=== PATIENT | male | born 1965 | race Caucasian/White ===

== ENCOUNTER 2016-07-28 19:47 | Emergency (ER) | payer MEDICAID ==
[2016-07-28 22:44] VITALS: BP 136/75
== END 2016-07-28 22:44 | disposition home or self-care (01) ==
LOC: ED 19:47
DX: S82.492A Other fracture of shaft of left fibula, initial encounter for closed fracture (principal); E11.9 Type 2 diabetes mellitus without complications; I10 Essential (primary) hypertension; E78.00 Pure hypercholesterolemia, unspecified; Z88.1 Allergy status to other antibiotic agents; X58.XXXA Exposure to other specified factors, initial encounter; Y93.89 Activity, other specified; Y92.89 Other specified places as the place of occurrence of the external cause; Y99.8 Other external cause status; G62.9 Polyneuropathy, unspecified
CPT/HCPCS: 90715

== ENCOUNTER 2016-11-06 19:51 | Emergency (ER) | payer MEDICAID ==
[~2016-11-06] VITALS: Ht 188 cm; Wt 102.0 kg
[2016-11-06 23:07] VITALS: BP 130/65
== END 2016-11-06 23:07 | disposition home or self-care (01) ==
LOC: ED 19:51
DX: S92.901A Unspecified fracture of right foot, initial encounter for closed fracture (principal); S93.401A Sprain of unspecified ligament of right ankle, initial encounter; E11.42 Type 2 diabetes mellitus with diabetic polyneuropathy; E78.5 Hyperlipidemia, unspecified; W18.30XA Fall on same level, unspecified, initial encounter; Y93.89 Activity, other specified; Y99.8 Other external cause status; Y92.000 Kitchen of unspecified non-institutional (private) residence as the place of occurrence of the external cause

== ENCOUNTER 2017-01-10 21:18 | Inpatient (IN) | payer MEDICAID ==
[~2017-01-10] VITALS: Ht 188 cm; Wt 93.0 kg
--- NOTE | 2017-01-10 21:27 | NUR ---
PT SENT TO LOBBY TO WAIT FOR AVAILABLE BED. ALERT AND ORIENTED AND NO DISTRESS NOTED
--- NOTE | 2017-01-10 22:28 | NUR ---
PT PRESENTS TO THE ED WITH A C/O L BIG TOE PAIN. PER THE PT HE STARTED TO NOTICE THE PAIN AND SWELLING 1 WEEK AGO AND IT HAS PROGESSIVELY GOTTEN WORSE. AT THIS TIME THERE IS A SMALL BLISTERLIKE WOUND TO THE PLANTAR PORTION AND REDNESS AND SWELLING AROUNF THE TOE. THE SWELLING DOES CONTINUE UP THE FOOT TO THE ANKLE. PT REPORTS PAIN IS 3/10 AND IS ABLE TO AMBULATE ON THE FOOT WITH INCREASED PAIN.
[2017-01-10] MEDS ORDERED: TRULICITY0.75 MG/0. SC (23:24)
[2017-01-10] MEDS ORDERED: ASPIR 8181 MG PO (23:25)
[2017-01-10 23:42] LABS: BASOPHIL % 0.4 % (0-2); PLATELET COUNT 327 x10^3mcL (130-400); RED CELL DISTRIBUTION WIDTH 12.6 % (11.5-14.5)
[2017-01-11] VITALS (7 sets, daily range): BP systolic 140–169; BP diastolic 70–83
--- NOTE | 2017-01-11 00:03 | NUR ---
REPORT CALLED TO OREN GALINDO ON [facility]
[2017-01-11 00:15] LABS: BILIRUBIN TOTAL 0.4 mg/dL (0.20-1.00); CALCIUM 8.9 mg/dL (8.5-10.1); CARBON DIOXIDE 23.6 mmol/L (21-32); CREATININE SERUM 1.9 mg/dL (0.7-1.3); POTASSIUM SERUM 4.7 mmol/L (3.5-5.1)
[2017-01-11 00:18] LABS: ALBUMIN 2.7 g/dL (3.4-5.0); TOTAL PROTEIN, SERUM 8.4 g/dL (6.4-8.2)
[2017-01-11 00:19] LABS: GLUCOSE SERUM 570.27 mg/dL (74-106)
[2017-01-11 01:09] LABS: FREE T4 1.08 ng/dL (0.76-1.46); FREE THYROXINE INDEX 2.8 ug/dL (1.4-4.5); T4(THYROXINE) 7.1 ug/dL (4.7-13.3)
--- NOTE | 2017-01-11 01:14 | NUR ---
RECEIVED PT FROM ED VIA KADEN. ORIENTED PT TO ROOM AND SURROUNDINGS. IV NOTED TO LFA PATENT AND INTACT. TELE 7 PLACED ON PT READING NSR. INSTRUCTED PT ON THE USE OF CALL LIGHT FOR ASSISTANCE. ENDORSED PT TO PRIMARY NURSE TIMI
[2017-01-11 01:26] LABS: MAGNESIUM 2.1 mg/dL (1.8-2.4); PHOSPHOROUS 4.4 mg/dL (2.5-4.9)
--- NOTE | 2017-01-11 01:30 | NUR ---
NOTED PT'S BS 515, 513. DENIES AND HEADACHE OR DISCOMFORT. NO S/S OF DISTRESS NOTED. DR. MARINA NOTIFIED AND AWARE. REGULAR INSULIN 21 UNITS GIVEN PER SLIDING SCALE. DR. MARINA IN TO SEE PT AT THIS TIME. CALL LIGHT WITHIN REACH. WILL CONTINUE TO MONITOR.
--- NOTE | 2017-01-11 02:19 | NUR ---
RECHECKED PT'S BS 482, 469. DENIES ANY HEADACHE OR DISCOMFORT. CURRENTLY AWAKE AND ALERT WATCHING TV. NO S/S OF DISTRESS NOTED. BREATHING EQUAL AND UNLABORED. IV NS INFUSING WELL TO LEFT FA. CALL LIGHT WITHIN REACH. WILL CONTINUE TO MONITOR. DR. MARINA NOTIFIED AND AWARE.
[2017-01-11 03:26] LABS: T3 TOTAL 0.77 ng/mL
--- NOTE | 2017-01-11 06:22 | NUR ---
PT SLEPT FOR FEW HOURS. EASILY AROUSED WHEN NAME CALLED. NO S/S OF RESPIRATORY DISTRESS NOTED ON ROOM AIR. IV TO LEFT FA PATENT AND NS INFUSING WELL. BS 222, COVERED WITH 6 UNITS REGULAR INSULIN. DENIES ANY PAIN AT THIS TIME. NO S/S OF DISTRESS NOTED. CALL LIGHT WITHIN REACH. WILL CONTINUE TO MONITOR. DR. MARINA NOTIFIED AND AWARE OF BS AND INSULING COVERAGE.
--- NOTE | 2017-01-11 07:40 | NUR ---
RECEIVED PT IN BED ALERT AND ORIENTED X4. NSR ON TELE MONITOR. PT REPORTS VERY POOR VISION. DENIES ANY PAIN AT THIS TIME. SWELLING AND A BLISTER NOTED TO L GREAT TOE. PT REPORTS NUMBNESS AND TINGLING TO GARETT FEET. AMBULATORY. INSTRUCTED TO USE CALL LIGHT WHEN IN NEED OF ANY ASSISTANCE.
--- NOTE | 2017-01-11 10:15 | NUR ---
DR NAVARRETE AND DR LAW AT BEDSIDE, PERFORMED I&D OF L GREAT TOE. PT TOLERATED WELL. DENIES PAIN. GAUZE AND EFREN WRAP DRESSING NOTED TO L GREAT TOE AND FOOT NOW.
[2017-01-11 16:52] LABS: UA SPECIFIC GRAVITY 1.025 (1.005-1.035); microscopic required? YES; urine erythrocyte 1+ (NEGATIVE)
[2017-01-11 17:02] LABS: AMPHETAMINE QUAL UR NONE DETECTED (NEG <=1000)
--- NOTE | 2017-01-11 18:10 | NUR ---
PT LYING IN BED, DENIES PAIN OR DISCOMFORT. DRESSING TO L FOOT/TOE CDI. INSTRUCTED TO USE POST-OP SHOE WHEN AMBULATING, HEEL TOUCH WEIGHT BEARING TOLERATED, VERBALIZED UNDERSTANDING.
--- NOTE | 2017-01-11 19:46 | NUR ---
RECEIVED PT FROM PREVIOUS SHIFT. AAOX4. TELE #7. DENIES CP/PRESSURE AT THIS TIME. PULSES PALPABLE BILAT. NO EDEMA NOTED. LUNG SOUNDS CTA BILAT. DENIES SOB ON RA. BOWEL SOUNDS ACTIVE X4. PT AMBULATORY. NO WEAKNESS. I&D OF LEFT GREAT TOE THIS MORNING. DRESSING AND EFREN BANDAGE CDI. IV TO LFA PATENT AND INTACT. INFUSING WELL. BED IN LOWEST POSITION. CALL LIGHT WITHIN REACH. WILL CONTINUE TO MONITOR. DAUGHTER AT BEDSIDE.
--- NOTE | 2017-01-12 01:01 | NUR ---
PT RESTING IN BED. RESPIRATIONS EVEN AND UNLABORED. NO SIGNS OF RESP DISTRESS. IV PATENT AND INTACT. INFUSING WELL. BED IN LOWEST POSITION. CALL LIGHT WITHIN REACH. WILL CONTINUE TO MONITOR
[2017-01-12 05:53] VITALS: BP 160/76
--- NOTE | 2017-01-12 06:12 | NUR ---
PT AWAKE AND ALERT IN BED. NO RESP DISTRESS NOTED. RESPIRATIONS EVEN AND UNLABORED. DENIES ANY PAIN AT THIS TIME. IV TO LFA PATENT AND INTACT. INFUSING WELL. BED IN LOWEST POSITION. CALL LIGHT WITHIN REACH. WILL ENDORSE CARE TO ONCOMING SHIFT
[2017-01-12 07:03] LABS: CALCIUM 8.5 mg/dL (8.5-10.1); CARBON DIOXIDE 24.8 mmol/L (21-32); CREATININE SERUM 1.5 mg/dL (0.7-1.3)
--- NOTE | 2017-01-12 07:15 | NUR ---
PT IN BED. NO DISTRESS REPORTED. AWAKE, COOPERATIVE OF CARE. IV INFUSING WELL TO LFA #20 NS AT 100ML/HR. POST OP SHOE AT BEDSIDE. BANDAGE WRAP TO LEFT FOOT GREAT TOE CDI. DENIES PAIN AT MOMENT. BED IN LOWEST POSITION, CALL LIGHT WITHIN REACH.
[2017-01-12 07:21] LABS: BASOPHIL % 0.6 % (0-2); PLATELET COUNT 295 x10^3mcL (130-400); RED CELL DISTRIBUTION WIDTH 12.9 % (11.5-14.5)
[2017-01-12 09:03] VITALS: BP 160/74
--- NOTE | 2017-01-12 13:00 | NUR ---
PT IN BED. NO DISTRESS NOTED. REPORTS COMFORT AT MOMENT. CALL LIGHT WITHIN REACH.
[2017-01-12 13:12] VITALS: BP 140/80
--- NOTE | 2017-01-12 17:05 | NUR ---
PASSED AFTERNOON MEDS. PT TOLERATED WELL. PT DENIES PAIN TO LEFT LOWER EXTREMITY GREAT TOE. BANDAGE IN PLACE WITH EFREN WRAP. CONDITION INTACT. PULSES +2 TO ALL EXTREMITY. CALL LIGHT WITHIN REACH.
--- NOTE | 2017-01-12 19:55 | NUR ---
RECEIVED PT FROM PREVIOUS SHIFT. AAOX4. TELE #7. DENIES CP/PRESSURE AT THIS TIME. PULSES STRONG BILAT. SLIGHT EDEMA TO LEFT FOOT. LUNG SOUNDS CTA BILAT. DENIES SOB ON RA. BOWEL SOUNDS ACTIVE X4. PT AMBULATORY. NO WEAKNESS NOTED. DRESSING AND EFREN BANDAGE TO LEFT FOOT AND GREAT TOE CDI. IV TO LFA PATENT AND INTACT. INFUSING WELL. BED IN LOWEST POSITION. CALL LIGHT WITHIN REACH. WILL CONTINUE TO MONITOR
[2017-01-12 21:10] VITALS: BP 160/72
--- NOTE | 2017-01-12 23:01 | NUR ---
PT RESTING IN BED WATCHING TV. NO COMPLAINTS OF SOB OR PAIN AT THIS TIME. IV TO LFA PATENT AND INTACT. INFUSING WELL. BED IN LOWEST POSITION. CALL LIGHT WITHIN REACH. WILL CONTINUE TO MONITOR
[2017-01-13 05:38] VITALS: BP 165/72
--- NOTE | 2017-01-13 06:27 | NUR ---
PT AWAKE IN BED WATCHING TV. INSULIN ADMININSTERED THIS MORNING 3 UNITS. BLOOD SUGAR 186. NO COMPLAINTS OF FOOT PAIN AT THIS TIME. RESPIRATIONS EVEN AND UNLABORED. NO SOB ON RA NOTED. IV TO LFA PATENT AND INTACT. INFUSING WELL. BED IN LOWEST POSITION. CALL LIGHT WITHIN REACH. WILL ENDORSE CARE TO ONCOMING SHIFT
[2017-01-13 06:58] LABS: BASOPHIL % 0.6 % (0-2); PLATELET COUNT 301 x10^3mcL (130-400); RED CELL DISTRIBUTION WIDTH 12.7 % (11.5-14.5)
--- NOTE | 2017-01-13 07:30 | NUR ---
REASSESSMENT DONE. NO DISTRESS NOTED. ABLE TO VERBALIZE NEEDS. DENIES PAIN TO LLE AT MOMENT. IV INFUSING WELL TO LFA #20 NS 100ML/HR. CALL LIGHT WITHIN REACH. WILL CONTINUE TO MONITOR.
[2017-01-13 07:37] LABS: CALCIUM 8.4 mg/dL (8.5-10.1); CARBON DIOXIDE 21.9 mmol/L (21-32); CREATININE SERUM 1.6 mg/dL (0.7-1.3); POTASSIUM SERUM 5.2 mmol/L (3.5-5.1)
--- NOTE | 2017-01-13 08:55 | NUR ---
DR ZARATE IN TO SEE PT. PROVIDING WOUND CARE TO LEFT FOOT GREAT TOE. PT TOLERATING PROCEDURE WELL.
[2017-01-13 09:19] VITALS: BP 140/74
[2017-01-13 13:28] VITALS: BP 159/76
--- NOTE | 2017-01-13 16:47 | NUR ---
Initial Nutrition Assessment Dx: Diabetic foot infection PMHx: DM, Neuropathy, polynodal buttox abcess s/p I&D PSHx: tonsilectomy, i&D for polinodal abcsess on buttox Labs: (01/13) Na:134L, K:5.2H, BH, BUN:25H, Cr:1.6H, Ca:8.4L,H/H:9.3/28L (01/10) Alb:2.7L, Lipase:1148H, A1c:10.2H, TH, Meds: Colace, Humulin, Lactinex, Levemir, NS IV, Theragran, Zofran Diet:CCHO PO Intake: (01/11) B:90%, L:60%, D:100% (01/12) B:100% (01/13) L:100% Ht: 74in, 6'2" Wt: 206#, 93.43kg BMI:26.4kg/m2 (overweight) IBW: 190#, 86kg %IBW: 108% UBW:206# per pt Age:51 y/o male Food Allergies:NKFA Skin: left hallux abscess s/p I &D Sal:19 Edema:+2 to left foot GI: active bowel sounds Last BM:01/12 Pt admitted with DMOOC A1C 10.2, w/ HCS, w/ Left great toe diabetic foot ulcer, BG 570 And VMN w/ Cr>1.3, Cr 1.9, per H&P. Per progress note 01/13, pt with left hallux abscess s/p incision and drainage and excisional debridement, all left foot 01/11/17. Per bed huddle this morning, pt pending wound culture sensitivity. During visit observed pt laying in bed. Pt reports to having a good appetite with no c/o N/V/C. Pt reports to always having loose stools. Pt had 1 loose stool today. Pt reports to having A1c: go from 17-10.2 since he started taking Trulicty, but has not been able to take it due both his primary doctor and aircraft design engineer opting out of Medi-Mal. Now pt is trying to find a new doctor so he can get back to taking Trulicity. Problem with: N: No V: No D: No C:No Problems with: Chewing: No Swallowing: No Current appetite: Good Recent wt change:No %wt change:N/A Vitamin/Supplement use:Vitamin A, Vitamin B6 and B12, Vitamin D, Magnesium and a Multivitamin. Special diet at home: pt tries to follow diabetic diet at home but does not always follow it. Physical activity: Walking Education: Pt requsted handout on glycemic index of foods, but RD explained we do not have one. RD provided pt with a Type 2 diabetes nutrition therapy handout. RD went over incorporating fiber into diet and portion control. Pt receptive and verbalized understanding. Estimated Nutritional Needs Based on actual body weight 93kg Energy:2325-2790kcal/d (25-30kcal/kg for maintenance) Protein:93-112 g/d (1-1.2g/kg for wound healing s/p debridement) Fluid: 2325-2790ml/d (1 ml/kcal) or per doctor Nutrition Diagnosis 1. Recommend continue with [facility] diet. 2. Recommend outpatient diabetes class. Intervention 1. Altered nutrition labs related to medication non-compliance to diabetes medication as evidenced by elevated B and A1c:10.2 Monitor/Evaluate Goal: PO intake at least 75% of estimated needs Monitor: PO intake, Labs, GI function F/U in 7 days as low risk:01/20
--- NOTE | 2017-01-13 16:49 | NUR ---
1. Recommend continue with [facility] diet. 2. Recommend outpatient diabetes class.
--- NOTE | 2017-01-13 17:00 | NUR ---
PT SITTING AT BEDSIDE CHAIR. POST OP SHOE IN PLACE. DENIES PAIN, PASSED AFTERNOON MEDICATIONS, PT TOLERATED WELL. NO DISTRESS NOTED. CALL LIGHT WITHIN REACH. DAUGHTER AT BEDSIDE.
[2017-01-13 17:31] VITALS: BP 156/79
[2017-01-13 18:19] VITALS: BP 142/82
--- NOTE | 2017-01-13 19:44 | NUR ---
SHIFT REASSESSMENT DONE.PATIENT ALERT AND ORIENTED..DAUGHTER AT BEDSIDE,SUPPORTIVE OF CARE.POOR VISION,CALL LITE IN REACH FOR ASSITANCE.BREATHING EASY.L FOOT POST OP SHOE,L GREAT TOE I AND D S/P,01/11.NS AT 100 CC/ HOUR.IV SITE TENDERNESS,REMINDED THAT I CAN START A NEW ONE,BUT SAYS HOLD OFF FOR NOW.MEDSURG PATIENT.CALL LIGHT IN REACH.
[2017-01-13 20:41] VITALS: BP 155/70
--- NOTE | 2017-01-13 21:09 | NUR ---
ALL PM MEDS GIVEN.
--- NOTE | 2017-01-14 00:45 | NUR ---
CHECKED AT INTERVALS.NO RESP DISTRESS.CALL LITE IN REACH.
--- NOTE | 2017-01-14 02:30 | NUR ---
NEW IV SITE RFA 20 GUAGE WITH GOOD BLOOD RETURN.IV RESUMED.
--- NOTE | 2017-01-14 02:32 | NUR ---
BED LINEN CHANGED BEFORE IV STARTED.MADE COMFORTABLE.PATIENT VERY PLEASANT AND COOPERATIVE OF CARE.
--- NOTE | 2017-01-14 05:58 | NUR ---
HAD AM CARE BUT STILL DO NOT WANT TO WEAR HOSPITAL GOWN.AM LAB WORKS DONE.BLOOD SUGAR 137 THIS AM.NS AT 100 CC/ HOUR.NEW BAG.IV SITE RFA REMAINS PATENT.WILL ENDORSE TO NEXT SHIFT.
[2017-01-14 06:08] LABS: BASOPHIL % 0.5 % (0-2); PLATELET COUNT 297 x10^3mcL (130-400)
[2017-01-14 06:23] VITALS: BP 154/77
[2017-01-14 06:28] LABS: CALCIUM 8.6 mg/dL (8.5-10.1); CARBON DIOXIDE 23.8 mmol/L (21-32); CREATININE SERUM 1.7 mg/dL (0.7-1.3)
--- NOTE | 2017-01-14 07:40 | NUR ---
PT RECEIVED AAOX4, CONVERSING WELL IN FULL SENTENCES. RESP EVEN AND UNLABORED ON RA. DENIES ANY SOB OR COUGH. DENIES ANY CP OR PRESSURE. IV ON RFA INTACT, 20G, INFUSING NS AT 100ML/HR. ABD ROUND/SOFT WITH ACTIVE BS IN ALL QUADS. VOIDING WELL WITH BRP. AMBULATORY WITH POST OP SHOE ON LEFT FOOT, WEIGHT BEARING TOLERATED. LEFT FOOT DRESSING CDI: GAUZE, KERLEX, AND EFREN WRAP. DENIES ANY PAIN OR DISCOMFORT AT THIS TIME. CALL LIGHT WITHIN REACH.
[2017-01-14 08:30] VITALS: BP 118/85
--- NOTE | 2017-01-14 11:03 | NUR ---
PT REPORTS NO BM THIS AM YET. DENIES ANY CP PRESSURE. ENCOURAGED TO WALK IN HALLWAYS WITH POST OP SHOE. WILL CONTINUE TO MONITOR.
[2017-01-14] MEDS ORDERED: CLINDAMYCIN HC300 MG PO (12:23)
--- NOTE | 2017-01-14 13:37 | NUR ---
PT STILL HAS NOT HAD BM, DR DIAZ MADE AWARE. PT ENCOURAGED TO AMBULATE IN HALLWAYS AND AGREEABLE. PT AMBULATED IN HALLWAYS X4 LAPS WITH POST OP SHOE TO LEFT FOOT. TOLERATED WELL WITHOUT COMPLAINTS. NOTED WITH LIMP DUE TO LEFT FOOT WOUND. PT REQUESTING CANE FOR STABILITY. DR DIAZ MADE AWARE, AT BEDSIDE TO EVALUATE.
--- NOTE | 2017-01-14 15:44 | NUR ---
PT PROVIDED WITH 4 POINT CANE FROM DONATION CLOSET. CURRENTLY AMBULATING IN HALLWAYS WITH VISITOR. POST OP SHOE TO LEFT FOOT IN PLACE. TOLERATING WELL WITHOUT COMPLAINTS.
[2017-01-14 17:26] VITALS: BP 160/72
--- NOTE | 2017-01-14 18:02 | NUR ---
PT ATTEMPTED TO HAVE BM, BUT ONLY HAD A VERY VERY SMALL ONE PER PATIENT. PT CONTINUES TO AMBULATE IN HALLWAYS FREQUENTLY. TOLERATING WELL WITHOUT COMPLAINTS.
--- NOTE | 2017-01-14 19:21 | NUR ---
REPORT GIVEN TO OREN HARDY
--- NOTE | 2017-01-14 19:25 | NUR ---
SHIFT REASSESSMENT DONE.PATIENT ALERT AND ORIENTED,SITTING UP AT BEDSIDE WITH .PLEASANT.A/O X 4.VISION DEFICIT,ASSIST PRN WITH ADLS.AMBULATORY,CANE PROVIDED.NS S ORDERED.IV SITE PATENT.MEDSURG PATIENT.NO BM YET TODAY,K+ LEVEL IS UP.L GREAT TOE DRESSING INTACT.WITH EDEMA NOTED.DENIES PAIN.CALL LIGHT IN REACH.
--- NOTE | 2017-01-14 20:53 | NUR ---
ALL PM MEDS GIVEN,SWALLOWS WELL.
[2017-01-14 21:22] VITALS: BP 142/57
--- NOTE | 2017-01-14 22:51 | NUR ---
PATIENT CLAIMED HE HAD BOWEL MOVEMENT X3.LAB WORKS DONE.DIFLUCAN IVPB.
[2017-01-14 23:10] LABS: CALCIUM 8.2 mg/dL (8.5-10.1); CARBON DIOXIDE 27.4 mmol/L (21-32); CREATININE SERUM 1.6 mg/dL (0.7-1.3); POTASSIUM SERUM 4.9 mmol/L (3.5-5.1)
--- NOTE | 2017-01-14 23:35 | NUR ---
K+ LEVEL NOW NORMAL AFTER HAVING BOWEL MOVEMENT.
--- NOTE | 2017-01-14 23:44 | NUR ---
PATIENT SLEEPING COMFORTABLY,DID AMBULATE EARLY SHIFT IN THE HALLWAY WITH NO INCIDENT.
--- NOTE | 2017-01-15 05:56 | NUR ---
PATIENT UP AND ABOUT,NOT WEARING HOSP[ITAL GOWN,COMFORTABLE WITH HIS SHIRT.NS AT 130 CC/ HOUR.ATB SCHEDULED.IV SITE SECURED AND PATENT.POST OP SHOE ON WHEN AMBULATING,ALSO HAS A CANE.WBAT.NO INCIDENT.CALL LIGHT IN REACH.
[2017-01-15 06:14] LABS: CALCIUM 8.8 mg/dL (8.5-10.1); CARBON DIOXIDE 25.9 mmol/L (21-32); CREATININE SERUM 1.5 mg/dL (0.7-1.3)
[2017-01-15 06:15] VITALS: BP 134/61
[2017-01-15 06:20] LABS: BASOPHIL % 0.5 % (0-2); PLATELET COUNT 295 x10^3mcL (130-400); RED CELL DISTRIBUTION WIDTH 12.9 % (11.5-14.5)
[2017-01-15 06:27] LABS: POTASSIUM SERUM 5.9 mmol/L (3.5-5.1)
--- NOTE | 2017-01-15 08:00 | NUR ---
RECIEVED PT. AWAKE,ALERT AND ORIENTED,DENIES ANY PAIN AT THIS TIME.CALL LIGHT W/ IN REACH.S/P I&D LEFT GREAT TOE W/ DRESSING CDI ,ENCOPURAGE TO USE POST OP. SHOE DURING AMBULATION AND W/ CANE.CONT. IV FLUIDS AND IV ANTIBIOTIC ORDERED.NO ACUTE DISTRESS NOTED.WILL CONT. PLAN OF CARE.
--- NOTE | 2017-01-15 09:10 | NUR ---
DR. JOE Sebastian/ OTHER MEDICAL STAFF MADE ROUNDS AND UPDATED PT. PLAN OF CARE.
[2017-01-15 09:22] VITALS: BP 182/74
--- NOTE | 2017-01-15 10:00 | NUR ---
K- LEVEL 5.9 DR. HOLBROOK NOTIFIED W/ ORDERS RECIEVED AND CARRIED OUT.
--- NOTE | 2017-01-15 14:00 | NUR ---
PT. AMBULATED IN THE BATHROOM AND HAD BM X 1 LG AMT.
[2017-01-15 14:05] LABS: CALCIUM 8.4 mg/dL (8.5-10.1); CARBON DIOXIDE 24.1 mmol/L (21-32); CREATININE SERUM 1.4 mg/dL (0.7-1.3); POTASSIUM SERUM 4.5 mmol/L (3.5-5.1)
[2017-01-15 17:11] VITALS: BP 160/90
--- NOTE | 2017-01-15 18:00 | NUR ---
K- LEVEL RESULTS 4.5 PT. DENIES ANY PAIN NO ACUTE DISTRESS NOTED.
--- NOTE | 2017-01-15 18:00 | NUR ---
DENIES ANY PAIN THE WHOLE DAY. AMBULATED IN THE BATHROOM AND VOIDING WELL.NO ACUTE DISTRESS NOTED. CALL LIGHT W/ IN REACH.
--- NOTE | 2017-01-15 20:06 | NUR ---
RECEIVED PT IN BED, RESTING QUIETLY. ALERT AND ORIENTED. RESP. EVEN AND UNLABORED. ON ROOM AIR, NO DISTRESS NOTED.AFEBRILE AND VITAL SIGNS STABLE. NO TELE. DENIES CHEST PAIN OR ANY DISCOMFORT AT THIS TIME. DRESSING TO LT FOOT, DRY AND INTACT. AMBULATES WITH POST OP. SHOE, DEB. WELL. IVF, NS AT 130ML/HR, INTACT AND INFUSING VIA RFA, SITE CLEAR. ASSISTED WITH HS CARE. CALL LIGHT WITHIN REACH. WILL CONTINUE TO MONITOR.
[2017-01-15 21:52] VITALS: BP 116/74
--- NOTE | 2017-01-15 23:44 | NUR ---
NO COMPLAINTS NOTED AT THIS TIME. KEPT COMFORTABLE. WILL CONTINUE TO MONITOR.
[2017-01-16 05:23] VITALS: BP 134/67
[2017-01-16 06:18] LABS: BASOPHIL % 0.7 % (0-2); PLATELET COUNT 279 x10^3mcL (130-400); RED CELL DISTRIBUTION WIDTH 12.7 % (11.5-14.5)
[2017-01-16 06:28] LABS: CALCIUM 8.3 mg/dL (8.5-10.1); CARBON DIOXIDE 24.5 mmol/L (21-32); CREATININE SERUM 1.4 mg/dL (0.7-1.3); POTASSIUM SERUM 5.4 mmol/L (3.5-5.1)
--- NOTE | 2017-01-16 06:29 | NUR ---
SLEPT WELL DURING THE NIGHT. NO COMPLAINTS NOTED. AFEBRILE AND VITAL SIGNS STABLE. RESP. EVEN AND UNLABORED. NO DISTRESS NOTED. DUE MEDS GIVEN ORDERED, DEB. WELL. IVF INTACT AND INFUSING WELL, SITE CLEAR. LT FOOT DRESSING DRY AND INTACT. ELEVATED ON PILLOW WHILE IN BED. WILL ENDORSE TO INCOMING NURSE.
--- NOTE | 2017-01-16 07:55 | NUR ---
AWAKE,ALERT AND ORIENTED.DENIES ANY PAIN AT T HIS TIME. S/P I& D LEFT GREAT TOE W/ DRESSING CDI 01/11/17.ENCOURAGE PT. TO USE POST OP SHOE AND CANE DURING AMBULATION,CONT. IV FLUIDS AND IV ANTIBIOTIC ORDERED.ABLE TO AMBULATE IN THE BATHROOM AND VOIDING WELL.NO ACUTE DISTRESS NOTED. WILL CONT. PLAN OF CARE.
[2017-01-16 09:23] VITALS: BP 174/79
--- NOTE | 2017-01-16 09:40 | NUR ---
DR. DIAZ HERE W/ OTHER MEDICAL STAFF MADE ROUNDS AND UPDATED PT. PLAN OF CARE.
--- NOTE | 2017-01-16 10:12 | NUR ---
PT. AMBULATED IN [address] X 2 LAPS THIS AM W/ POST OP SHOE AND W/ CANE DEB. WELL.
[2017-01-16] MEDS ORDERED: DIFLUCAN200 MG PO (10:30)
[2017-01-16 11:50] VITALS: BP 120/78
--- NOTE | 2017-01-16 13:00 | NUR ---
DR. GODFREYED HERE AND SEEN THE PT. W/ NEW ORDERS OK PT.TO GO HOME TODAY PT. MADE AWARE AND AWAITING FOR RIDE.
--- NOTE | 2017-01-16 15:11 | NUR ---
PT. WENT HOME W/ STABLE CONDITION PER W/C ACC. W/ HIS DAUGHTER. DISCHARGE INSTRUCTIONS AND PRESCRIPTION GIVEN AND DISCUSSED TO PT. AND VERBALIZED UNDERSTANDING OF INSTRUCTIONS GIVEN,NO ACUTE DISTRESS NOTED. ESCORTED BY PHIL IN THE LOBBY.
== END 2017-01-16 15:10 | disposition home or self-care (01) | DRG 380 ==
LOC: ED 21:18 → DU 23:18 → MU 01-13 17:55
PROVIDERS: Emergency Medicine; Internal Medicine Nephrology; Student in an Organized Health Care Education/Training Program; ADMIT Family Medicine Sports Medicine
PROC: 0JBR0ZZ Excision of Left Foot Subcutaneous Tissue and Fascia, Open Approach (ICD-10-PCS; principal; 2017-01-11)
DX: E11.621 Type 2 diabetes mellitus with foot ulcer (principal); L97.521 Non-pressure chronic ulcer of other part of left foot limited to breakdown of skin; N17.0 Acute kidney failure with tubular necrosis; E11.00 Type 2 diabetes mellitus with hyperosmolarity without nonketotic hyperglycemic-hyperosmolar coma (NKHHC); E43 Unspecified severe protein-calorie malnutrition; E11.42 Type 2 diabetes mellitus with diabetic polyneuropathy; K85.90 Acute pancreatitis without necrosis or infection, unspecified; E11.65 Type 2 diabetes mellitus with hyperglycemia; L02.612 Cutaneous abscess of left foot; E87.1 Hypo-osmolality and hyponatremia; B95.61 Methicillin susceptible Staphylococcus aureus infection as the cause of diseases classified elsewhere; E87.5 Hyperkalemia; I10 Essential (primary) hypertension; R74.0 Nonspecific elevation of levels of transaminase and lactic acid dehydrogenase [LDH]; E78.5 Hyperlipidemia, unspecified; D64.9 Anemia, unspecified; E66.3 Overweight; Z79.82 Long term (current) use of aspirin; Z79.4 Long term (current) use of insulin; Z68.26 Body mass index [BMI] 26.0-26.9, adult; Z91.14 Patient's other noncompliance with medication regimen
CPT/HCPCS: 82962; 83880; 84439; J0744; J1450; J1815; J3490; J7030; Q0092

== ENCOUNTER 2017-01-18 18:01 | Inpatient (IN) | payer MEDICAID ==
[~2017-01-18] VITALS: Ht 188 cm; Wt 112.6 kg
[~2017-01-18 18:01] MED LIST: ASPIR 8181 MG PO; CLINDAMYCIN HC300 MG PO; DIFLUCAN200 MG PO; TRULICITY0.75 MG/0. SC
[2017-01-18 21:55] LABS: BASOPHIL % 0.6 % (0-2); CALCIUM 8.1 mg/dL (8.5-10.1); CARBON DIOXIDE 24.2 mmol/L (21-32); CREATININE SERUM 1.7 mg/dL (0.7-1.3); PLATELET COUNT 302 x10^3mcL (130-400); RED CELL DISTRIBUTION WIDTH 13.1 % (11.5-14.5)
[2017-01-18 22:09] LABS: BILIRUBIN TOTAL 0.5 mg/dL (0.20-1.00); PHOSPHOROUS 2.9 mg/dL (2.5-4.9); TOTAL PROTEIN, SERUM 6.7 g/dL (6.4-8.2)
[2017-01-18 22:11] LABS: ALBUMIN 2.1 g/dL (3.4-5.0)
[2017-01-18] MEDS ORDERED: PRAVACHOL20 MG PO (22:32)
[2017-01-18] MEDS ORDERED: LOSARTAN POTASS50 M1 PO (22:32)
[2017-01-19] VITALS (7 sets, daily range): BP systolic 139–159; BP diastolic 58–83
[2017-01-19 00:04] LABS: UA SPECIFIC GRAVITY 1.025 (1.005-1.035); microscopic required? YES; urine erythrocyte 2+ (NEGATIVE)
[2017-01-19 01:47] LABS: MAGNESIUM 2.1 mg/dL (1.8-2.4)
[2017-01-19 02:03] LABS: FREE T4 1.03 ng/dL (0.76-1.46); FREE THYROXINE INDEX 1.9 ug/dL (1.4-4.5); T4(THYROXINE) 5.3 ug/dL (4.7-13.3)
[2017-01-19 02:20] LABS: CHOLESTEROL/HDL RATIO 2.3
[2017-01-19 02:44] LABS: T3 TOTAL 0.53 ng/mL
[2017-01-19 03:00] LABS: CALCIUM 7.9 mg/dL (8.5-10.1); CARBON DIOXIDE 23.4 mmol/L (21-32); CREATININE SERUM 1.7 mg/dL (0.7-1.3); POTASSIUM SERUM 4.1 mmol/L (3.5-5.1)
[2017-01-19 03:34] LABS: BASOPHIL % 0.3 % (0-2); PLATELET COUNT 292 x10^3mcL (130-400); RED CELL DISTRIBUTION WIDTH 13.2 % (11.5-14.5)
[2017-01-20 05:11] VITALS: BP 151/79
[2017-01-20 06:25] LABS: BASOPHIL % 1.1 % (0-2); PLATELET COUNT 290 x10^3mcL (130-400); RED CELL DISTRIBUTION WIDTH 13.7 % (11.5-14.5)
[2017-01-20 06:50] LABS: CALCIUM 8.2 mg/dL (8.5-10.1); CARBON DIOXIDE 23.3 mmol/L (21-32); CREATININE SERUM 1.5 mg/dL (0.7-1.3); POTASSIUM SERUM 4.7 mmol/L (3.5-5.1)
[2017-01-20 08:43] VITALS: BP 150/64
[2017-01-20 16:47] VITALS: BP 145/79
[2017-01-20 21:25] VITALS: BP 130/82
[2017-01-21 04:51] VITALS: BP 153/77
[2017-01-21 06:30] LABS: BASOPHIL % 1.2 % (0-2); PLATELET COUNT 327 x10^3mcL (130-400); RED CELL DISTRIBUTION WIDTH 13.3 % (11.5-14.5)
[2017-01-21 06:43] LABS: CALCIUM 8.1 mg/dL (8.5-10.1); CARBON DIOXIDE 24.8 mmol/L (21-32); CREATININE SERUM 1.4 mg/dL (0.7-1.3); POTASSIUM SERUM 4.4 mmol/L (3.5-5.1)
[2017-01-21 09:09] VITALS: BP 149/80
[2017-01-21] MEDS ORDERED: ZITHROMAX500 MG PO (13:04)
[2017-01-21] MEDS ORDERED: KEFLEX250 M1 PO (13:05)
[2017-01-21 13:07] VITALS: BP 154/62
[2017-01-21 13:16] VITALS: BP 154/62
[2017-01-21] MEDS ORDERED: LAC PO (13:20)
[2017-01-21] MEDS ORDERED: LASIX40 MG PO (14:33)
== END 2017-01-21 15:48 | disposition home health service (06) | DRG 720 ==
LOC: ED 18:01 → DU 01-19 00:01
PROVIDERS: Family Medicine; Specialist; ADMIT Student in an Organized Health Care Education/Training Program
PROC: 0JBR0ZZ Excision of Left Foot Subcutaneous Tissue and Fascia, Open Approach (ICD-10-PCS; principal; 2017-01-20)
DX: A41.9 Sepsis, unspecified organism (principal); N17.0 Acute kidney failure with tubular necrosis; J96.01 Acute respiratory failure with hypoxia; E43 Unspecified severe protein-calorie malnutrition; I50.43 Acute on chronic combined systolic (congestive) and diastolic (congestive) heart failure; J18.9 Pneumonia, unspecified organism; D68.69 Other thrombophilia; E11.610 Type 2 diabetes mellitus with diabetic neuropathic arthropathy; I11.0 Hypertensive heart disease with heart failure; R65.20 Severe sepsis without septic shock; L97.521 Non-pressure chronic ulcer of other part of left foot limited to breakdown of skin; N20.0 Calculus of kidney; E11.65 Type 2 diabetes mellitus with hyperglycemia; D64.9 Anemia, unspecified; R80.9 Proteinuria, unspecified; E78.5 Hyperlipidemia, unspecified; R31.9 Hematuria, unspecified; Z68.31 Body mass index [BMI] 31.0-31.9, adult
CPT/HCPCS: 82962; 83880; 84439; 94150; J0456; J0696; J1815; J1940; J7030; J7613; J7620; J7644; Q0092

== ENCOUNTER 2017-10-13 17:04 | Inpatient (IN) | payer MEDICAID ==
[~2017-10-13] VITALS: Ht 188 cm; Wt 91.3 kg
[~2017-10-13 17:04] MED LIST changes: +KEFLEX250 M1 PO; +LAC PO; +LASIX40 MG PO; +LOSARTAN POTASS50 M1 PO; +PRAVACHOL20 MG PO; +ZITHROMAX500 MG PO
[2017-10-13 17:28] VITALS: Ht 188 cm; Wt 91.3 kg
[2017-10-13 18:29] LABS: PLATELET COUNT 311 x10^3mcL (130-400); RED CELL DISTRIBUTION WIDTH 14.3 % (11.5-14.5)
[2017-10-13] MEDS ORDERED: VITAMIN D32000 I2 PO (18:55)
[2017-10-13] MEDS ORDERED: METOPROLOL SUCC50 M2 PO (18:55)
[2017-10-13] MEDS ORDERED: ASPIRIN ADULT L81 M3 PO (18:55)
[2017-10-13] MEDS ORDERED: HYDROCHLOROTHIA25 MG PO (18:56)
[2017-10-13] MEDS ORDERED: BASAGLAR K100 UNIT/1 SQ (18:56)
[2017-10-13] MEDS ORDERED: HYDROCHLOROTHIA25 MG (18:56)
[2017-10-13 19:02] LABS: BILIRUBIN TOTAL 0.6 mg/dL (0.20-1.00); CALCIUM 8.3 mg/dL (8.5-10.1); CARBON DIOXIDE 18.7 mmol/L (21-32)
[2017-10-13 19:08] LABS: ALBUMIN 1.6 g/dL (3.4-5.0); BAND NEUTROPHIL 0 % (0-10); BASOPHIL 0 % (0-2); MONOCYTE 3 % (0-7); PLATELET MORPHOLOGY PLATELETS NORMAL; SEGMENTED NEUTROPHILS 95 % (37-75); rbc morphology (normal/abnorm) ABNORMAL (NORMAL)
[2017-10-13 19:11] LABS: POTASSIUM SERUM 5.7 mmol/L (3.5-5.1)
[2017-10-13 19:12] LABS: CREATININE SERUM 4.4 mg/dL (0.7-1.3)
[2017-10-13 19:25] LABS: T3 TOTAL 0.44 ng/mL
[2017-10-13 19:26] LABS: FREE T4 1.4 ng/dL (0.76-1.46); FREE THYROXINE INDEX 2.2 ug/dL (1.4-4.5); T4(THYROXINE) 5.1 ug/dL (4.7-13.3)
[2017-10-13 19:39] LABS: RED BLOOD CELLS 3.47 M/mm3 (4.52-5.90)
[2017-10-13 19:47] LABS: CHOLESTEROL/HDL RATIO 8.1; PHOSPHOROUS 4.9 mg/dL (2.5-4.9)
[2017-10-13 19:52] LABS: IRON 20 ug/dL (65-170); TOTAL IRON BINDING CAPACITY 109 ug/dL (250-450)
[2017-10-13 20:10] VITALS: BP 132/68
[2017-10-13 21:20] LABS: CARBON DIOXIDE 18.2 mmol/L (21-32); POTASSIUM SERUM 5.1 mmol/L (3.5-5.1)
[2017-10-13 21:24] LABS: CREATININE SERUM 4.2 mg/dL (0.7-1.3)
[2017-10-14 05:08] LABS: PLATELET COUNT 322 x10^3mcL (130-400); RED CELL DISTRIBUTION WIDTH 14.4 % (11.5-14.5)
[2017-10-14 05:10] LABS: CALCIUM 8.3 mg/dL (8.5-10.1); CARBON DIOXIDE 21.5 mmol/L (21-32); MAGNESIUM 2.1 mg/dL (1.8-2.4); PHOSPHOROUS 5.1 mg/dL (2.5-4.9); POTASSIUM SERUM 4.7 mmol/L (3.5-5.1)
[2017-10-14 05:23] LABS: CREATININE SERUM 4.1 mg/dL (0.7-1.3)
[2017-10-14 05:51] LABS: BAND NEUTROPHIL 4 % (0-10); BASOPHIL 0 % (0-2); MONOCYTE 3 % (0-7); SEGMENTED NEUTROPHILS 90 % (37-75)
[2017-10-14 05:54] LABS: rbc morphology (normal/abnorm) ABNORMAL (NORMAL)
[2017-10-14 05:55] LABS: PLATELET MORPHOLOGY PLATELETS NORMAL
[2017-10-14 08:50] VITALS: BP 150/70
[2017-10-14 12:03] LABS: microscopic required? YES; urine erythrocyte 2+ (NEGATIVE)
[2017-10-14 12:13] LABS: AMPHETAMINE QUAL UR NONE DETECTED (See below)
[2017-10-14 12:24] VITALS: BP 130/76
[2017-10-14 16:38] VITALS: BP 132/63
[2017-10-14 20:02] VITALS: BP 127/60
[2017-10-15 05:14] VITALS: BP 132/63
[2017-10-15 07:22] LABS: PLATELET COUNT 326 x10^3mcL (130-400); RED CELL DISTRIBUTION WIDTH 14.4 % (11.5-14.5)
[2017-10-15 07:34] LABS: BILIRUBIN TOTAL 1.2 mg/dL (0.20-1.00); CALCIUM 7.9 mg/dL (8.5-10.1); CARBON DIOXIDE 20.2 mmol/L (21-32); CREATININE SERUM 3.7 mg/dL (0.7-1.3); PHOSPHOROUS 4.9 mg/dL (2.5-4.9); POTASSIUM SERUM 4.1 mmol/L (3.5-5.1)
[2017-10-15 07:38] LABS: ALBUMIN 1.5 g/dL (3.4-5.0); TOTAL PROTEIN, SERUM 6.1 g/dL (6.4-8.2)
[2017-10-15 09:47] LABS: BAND NEUTROPHIL 4 % (0-10); BASOPHIL 0 % (0-2); MONOCYTE 5 % (0-7); SEGMENTED NEUTROPHILS 87 % (37-75)
[2017-10-15 09:50] LABS: rbc morphology (normal/abnorm) ABNORMAL (NORMAL)
[2017-10-15 14:05] VITALS: BP 134/73
[2017-10-15 16:48] VITALS: BP 149/73
[2017-10-15 20:47] VITALS: BP 123/61
[2017-10-16 05:00] VITALS: BP 109/56
[2017-10-16 08:20] VITALS: BP 100/55
[2017-10-16 08:25] LABS: CALCIUM 7.5 mg/dL (8.5-10.1); CARBON DIOXIDE 21.4 mmol/L (21-32); MAGNESIUM 1.8 mg/dL (1.8-2.4); PHOSPHOROUS 3.6 mg/dL (2.5-4.9)
[2017-10-16 08:28] LABS: CREATININE SERUM 3.5 mg/dL (0.7-1.3)
[2017-10-16 08:45] LABS: PLATELET COUNT 313 x10^3mcL (130-400); RED CELL DISTRIBUTION WIDTH 14.4 % (11.5-14.5)
[2017-10-16 10:07] LABS: BAND NEUTROPHIL 10 % (0-10); BASOPHIL 0 % (0-2); MONOCYTE 8 % (0-7); SEGMENTED NEUTROPHILS 78 % (37-75); rbc morphology (normal/abnorm) ABNORMAL (NORMAL); schistocyte (helmet cell) 1+
[2017-10-16 10:08] LABS: PLATELET MORPHOLOGY LARGE PLATELET SEEN
[2017-10-16 17:39] VITALS: BP 128/60
[2017-10-16 21:11] VITALS: BP 134/73
[2017-10-17 04:34] LABS: PLATELET COUNT 325 x10^3mcL (130-400); RED CELL DISTRIBUTION WIDTH 14.4 % (11.5-14.5)
[2017-10-17 04:41] VITALS: BP 131/53
[2017-10-17 04:53] LABS: BILIRUBIN TOTAL 0.58 mg/dL (0.20-1.00); CALCIUM 7.7 mg/dL (8.5-10.1); CARBON DIOXIDE 22.3 mmol/L (21-32); CREATININE SERUM 3.7 mg/dL (0.7-1.3); POTASSIUM SERUM 4.2 mmol/L (3.5-5.1); TOTAL PROTEIN, SERUM 6.4 g/dL (6.4-8.2)
[2017-10-17 04:55] LABS: ALBUMIN 1.2 g/dL (3.4-5.0)
[2017-10-17 05:31] LABS: BAND NEUTROPHIL 4 % (0-10); METAMYELOCTE 3 % (0-2); MONOCYTE 4 % (0-7); SEGMENTED NEUTROPHILS 79 % (37-75)
[2017-10-17 05:33] LABS: PLATELET MORPHOLOGY LARGE PLATELET SEEN; ovalocyte/elliptocyte 1+; rbc morphology (normal/abnorm) ABNORMAL (NORMAL)
[2017-10-17 08:34] VITALS: BP 154/68
[2017-10-17 16:37] VITALS: BP 162/81
[2017-10-17 20:02] VITALS: BP 151/70
[2017-10-18 05:57] VITALS: BP 158/68
[2017-10-18 07:44] LABS: PLATELET COUNT 355 x10^3mcL (130-400)
[2017-10-18 07:45] LABS: RED CELL DISTRIBUTION WIDTH 14.7 % (11.5-14.5)
[2017-10-18 07:58] LABS: CALCIUM 7.8 mg/dL (8.5-10.1); CARBON DIOXIDE 20.1 mmol/L (21-32); CREATININE SERUM 3.3 mg/dL (0.7-1.3); PHOSPHOROUS 4.1 mg/dL (2.5-4.9); POTASSIUM SERUM 4.5 mmol/L (3.5-5.1)
[2017-10-18 08:21] VITALS: BP 149/59
[2017-10-18 10:13] LABS: BAND NEUTROPHIL 2 % (0-10); MONOCYTE 7 % (0-7); PLATELET MORPHOLOGY LARGE PLATELET SEEN; SEGMENTED NEUTROPHILS 87 % (37-75); rbc morphology (normal/abnorm) ABNORMAL (NORMAL)
[2017-10-18 18:04] VITALS: BP 117/64
[2017-10-18 21:07] VITALS: BP 150/72
[2017-10-19 04:18] VITALS: BP 129/81; BP 145/68
[2017-10-19 05:42] LABS: BASOPHIL % 0.2 % (0-2); PLATELET COUNT 397 x10^3mcL (130-400)
[2017-10-19 05:57] LABS: CARBON DIOXIDE 19.9 mmol/L (21-32); CREATININE SERUM 3.2 mg/dL (0.7-1.3); PHOSPHOROUS 4.1 mg/dL (2.5-4.9); POTASSIUM SERUM 5.3 mmol/L (3.5-5.1)
[2017-10-19 06:00] LABS: RED CELL DISTRIBUTION WIDTH 14.9 % (11.5-14.5)
[2017-10-19 10:06] VITALS: BP 130/60
[2017-10-19 18:17] VITALS: BP 168/83
[2017-10-19 20:54] VITALS: BP 140/63
[2017-10-20 04:41] VITALS: BP 141/65
[2017-10-20 06:33] LABS: CALCIUM 7.7 mg/dL (8.5-10.1); CARBON DIOXIDE 18.9 mmol/L (21-32); CREATININE SERUM 3.1 mg/dL (0.7-1.3); MAGNESIUM 1.8 mg/dL (1.8-2.4); PHOSPHOROUS 2.8 mg/dL (2.5-4.9); POTASSIUM SERUM 4.5 mmol/L (3.5-5.1)
[2017-10-20 06:54] LABS: BASOPHIL % 0.3 % (0-2)
[2017-10-20 07:15] LABS: PLATELET COUNT 411 x10^3mcL (130-400)
[2017-10-20 09:17] VITALS: BP 159/78
[2017-10-20] MEDS ORDERED: CEFEPIME1 GM/50 ML IV (15:59)
[2017-10-20] MEDS ORDERED: HUMALOG MIX 50/10 ML SQ (16:03)
[2017-10-20] MEDS ORDERED: HUMULIN10 ML SC (16:04)
[2017-10-20 16:41] VITALS: BP 159/78
== END 2017-10-20 17:30 | disposition home health service (06) | DRG 710 ==
LOC: ED 17:04 → MU 18:24
PROVIDERS: Emergency Medicine; Family Medicine; Podiatrist Foot & Ankle Surgery
PROC: 0JNQ0ZZ Release Right Foot Subcutaneous Tissue and Fascia, Open Approach (ICD-10-PCS; 2017-10-14)
PROC: 0Y6P0Z2 Detachment at Right 1st Toe, Mid, Open Approach (ICD-10-PCS; 2017-10-15)
PROC: 0Y6R0Z0 Detachment at Right 2nd Toe, Complete, Open Approach (ICD-10-PCS; 2017-10-15)
PROC: 0Y6M0ZD Detachment at Right Foot, Partial 4th Ray, Open Approach (ICD-10-PCS; 2017-10-17)
PROC: 0Y6M0ZF Detachment at Right Foot, Partial 5th Ray, Open Approach (ICD-10-PCS; 2017-10-17)
PROC: 0Y6M0ZC Detachment at Right Foot, Partial 3rd Ray, Open Approach (ICD-10-PCS; principal; 2017-10-17 13:00)
DX: A41.89 Other specified sepsis (principal); N17.0 Acute kidney failure with tubular necrosis; E11.00 Type 2 diabetes mellitus with hyperosmolarity without nonketotic hyperglycemic-hyperosmolar coma (NKHHC); E43 Unspecified severe protein-calorie malnutrition; A48.0 Gas gangrene; D68.59 Other primary thrombophilia; E08.69 Diabetes mellitus due to underlying condition with other specified complication; E11.42 Type 2 diabetes mellitus with diabetic polyneuropathy; E11.52 Type 2 diabetes mellitus with diabetic peripheral angiopathy with gangrene; I95.9 Hypotension, unspecified; L03.115 Cellulitis of right lower limb; E11.65 Type 2 diabetes mellitus with hyperglycemia; M86.171 Other acute osteomyelitis, right ankle and foot; E87.1 Hypo-osmolality and hyponatremia; E87.5 Hyperkalemia; E83.39 Other disorders of phosphorus metabolism; S91.331S Puncture wound without foreign body, right foot, sequela; M62.50 Muscle wasting and atrophy, not elsewhere classified, unspecified site; I10 Essential (primary) hypertension; Z68.26 Body mass index [BMI] 26.0-26.9, adult; Z79.82 Long term (current) use of aspirin; Z79.4 Long term (current) use of insulin; W26.8XXS Contact with other sharp object(s), not elsewhere classified, sequela
CPT/HCPCS: 83880; 84439; 97110-GP; 97116-GP; 97164; 97530-GP; 97535-GP; J0692; J1170; J1815; J1817; J2250; J2543; J2704; J3010; J3370; J3490; J7030; Q0092

== ENCOUNTER 2018-01-18 18:34 | Inpatient (IN) | payer MEDICAID ==
[~2018-01-18] VITALS: Ht 188 cm; Wt 104.0 kg
[~2018-01-18 18:34] MED LIST changes: +ASPIRIN ADULT L81 M3 PO; +BASAGLAR K100 UNIT/1 SQ; +CEFEPIME1 GM/50 ML IV; +HUMALOG MIX 50/10 ML SQ; +HUMULIN10 ML SC; +HYDROCHLOROTHIA25 MG; +HYDROCHLOROTHIA25 MG PO; +METOPROLOL SUCC50 M2 PO; +VITAMIN D32000 I2 PO
[2018-01-18 18:37] VITALS: Ht 188 cm; Wt 104.0 kg
[2018-01-18 19:23] LABS: BASOPHIL % 0.6 % (0-2); PLATELET COUNT 244 x10^3mcL (130-400)
[2018-01-18 19:24] LABS: RED CELL DISTRIBUTION WIDTH 14.9 % (11.5-14.5)
[2018-01-18 19:31] LABS: CALCIUM 8.2 mg/dL (8.5-10.1); CARBON DIOXIDE 22.6 mmol/L (21-32); CREATININE SERUM 3.2 mg/dL (0.7-1.3); POTASSIUM SERUM 5.4 mmol/L (3.5-5.1)
[2018-01-18 19:47] LABS: BILIRUBIN TOTAL 1.39 mg/dL (0.20-1.00)
[2018-01-18 19:48] LABS: ALBUMIN 2.5 g/dL (3.4-5.0)
[2018-01-18] MEDS ORDERED: AMLODIPINE BESY10 M2 PO (20:34)
[2018-01-18] MEDS ORDERED: VITAMIN D32000 I2 PO (20:35)
[2018-01-18] MEDS ORDERED: HYDRALAZINE HCL25 MG PO (20:36)
[2018-01-18] MEDS ORDERED: VITAMIN D50000 I4 PO (20:36)
[2018-01-18] MEDS ORDERED: TRULICITY1.5 MG/0.5 SC (20:37)
[2018-01-18 22:01] LABS: MAGNESIUM 2.1 mg/dL (1.8-2.4)
[2018-01-18 22:11] LABS: CHOLESTEROL/HDL RATIO 2.8
[2018-01-18 22:26] VITALS: BP 152/87
[2018-01-18 22:35] LABS: UA SPECIFIC GRAVITY 1.025 (1.005-1.035); microscopic required? YES; urine erythrocyte TRACE (NEGATIVE)
[2018-01-18 22:50] LABS: AMPHETAMINE QUAL UR NONE DETECTED (See below)
[2018-01-19 05:02] VITALS: BP 116/71
[2018-01-19 05:14] VITALS: BP 116/71
[2018-01-19 06:32] LABS: CALCIUM 8.1 mg/dL (8.5-10.1); CREATININE SERUM 3.2 mg/dL (0.7-1.3); POTASSIUM SERUM 5.2 mmol/L (3.5-5.1)
[2018-01-19 06:42] LABS: BASOPHIL % 0.8 % (0-2); PLATELET COUNT 248 x10^3mcL (130-400)
[2018-01-19 07:12] LABS: RED CELL DISTRIBUTION WIDTH 15.1 % (11.5-14.5)
[2018-01-19 08:34] VITALS: BP 150/71
[2018-01-19 13:09] VITALS: BP 136/66
[2018-01-19 17:23] VITALS: BP 128/59
[2018-01-19 19:15] VITALS: BP 128/65
[2018-01-20 05:32] VITALS: BP 134/71
[2018-01-20 06:08] LABS: BASOPHIL % 1.2 % (0-2); PLATELET COUNT 235 x10^3mcL (130-400)
[2018-01-20 06:21] LABS: BILIRUBIN TOTAL 0.7 mg/dL (0.20-1.00); CALCIUM 7.8 mg/dL (8.5-10.1); CARBON DIOXIDE 24.1 mmol/L (21-32); CREATININE SERUM 3.2 mg/dL (0.7-1.3); POTASSIUM SERUM 4.8 mmol/L (3.5-5.1); TOTAL PROTEIN, SERUM 6.3 g/dL (6.4-8.2)
[2018-01-20 06:24] LABS: ALBUMIN 2.2 g/dL (3.4-5.0)
[2018-01-20 10:10] VITALS: BP 139/77
[2018-01-20 12:50] VITALS: BP 146/80
[2018-01-20 14:32] LABS: microalbumin:creatinine ratio 2960.9 (0.0-30.0)
[2018-01-20 16:12] VITALS: BP 126/56
[2018-01-20 20:29] VITALS: BP 138/68
[2018-01-21 04:27] LABS: VITAMIN D 25-HYDROXY 20.5 ng/mL (30.0-100.0)
[2018-01-21 05:41] VITALS: BP 156/78
[2018-01-21 06:08] LABS: BASOPHIL % 1.1 % (0-2); PLATELET COUNT 257 x10^3mcL (130-400)
[2018-01-21 07:00] LABS: CALCIUM 8.1 mg/dL (8.5-10.1); CARBON DIOXIDE 23.6 mmol/L (21-32); POTASSIUM SERUM 4.3 mmol/L (3.5-5.1)
[2018-01-21 07:04] LABS: RED CELL DISTRIBUTION WIDTH 15.4 % (11.5-14.5)
[2018-01-21 09:22] VITALS: BP 148/68
[2018-01-21 12:20] VITALS: BP 147/77
[2018-01-21 13:20] VITALS: BP 147/77
[2018-01-21 17:15] VITALS: BP 110/62
[2018-01-21 21:00] VITALS: BP 125/65
[2018-01-22 05:35] VITALS: BP 141/71
[2018-01-22 09:27] VITALS: BP 148/74
[2018-01-22 10:17] VITALS: BP 148/74
== END 2018-01-22 11:45 | disposition home or self-care (01) | DRG 194 ==
LOC: ED 18:34 → DU 21:19
PROVIDERS: Emergency Medicine; Internal Medicine
DX: I13.0 Hypertensive heart and chronic kidney disease with heart failure and stage 1 through stage 4 chronic kidney disease, or unspecified chronic kidney disease (principal); J96.01 Acute respiratory failure with hypoxia; E43 Unspecified severe protein-calorie malnutrition; I50.33 Acute on chronic diastolic (congestive) heart failure; N17.9 Acute kidney failure, unspecified; D64.9 Anemia, unspecified; E87.5 Hyperkalemia; N18.4 Chronic kidney disease, stage 4 (severe); J44.9 Chronic obstructive pulmonary disease, unspecified; E11.22 Type 2 diabetes mellitus with diabetic chronic kidney disease; I25.10 Atherosclerotic heart disease of native coronary artery without angina pectoris; Z68.41 Body mass index [BMI] 40.0-44.9, adult; Z79.4 Long term (current) use of insulin
CPT/HCPCS: 82962; 83880; 94150; J1644; J1815; J1817; J1940; J3490; J7613; J7620; J7626; Q0092

== ENCOUNTER 2019-03-19 23:14 | Inpatient (IN) | payer MEDICAID ==
[~2019-03-19] VITALS: Ht 188 cm; Wt 101.7 kg
[~2019-03-19 23:14] MED LIST changes: +AMLODIPINE BESY10 M2 PO; +HYDRALAZINE HCL25 MG PO; +TRULICITY1.5 MG/0.5 SC; +VITAMIN D50000 I4 PO
[2019-03-19 23:27] VITALS: Ht 188 cm; Wt 101.7 kg
--- NOTE | 2019-03-20 | NUR ---
PATIENT SEEN WITH COMPLAINT OF CHRONIC LEG SWELLING. REPORTS HE HAS SOB WITH EXERTION.PATIENT WAS SEEN BY
--- NOTE | 2019-03-20 00:30 | NUR ---
PORTABLE CHEST XRAY WAS DONE. BLOOD WAS DRAWN.
[2019-03-20 00:50] LABS: BASOPHIL % 0.9 % (0-2); PLATELET COUNT 219 x10^3mcL (130-400)
[2019-03-20 00:51] LABS: RED CELL DISTRIBUTION WIDTH 16.1 % (11.5-14.5)
--- NOTE | 2019-03-20 01:00 | NUR ---
SALINE LOCK INSERTED. PATIENT MEDICATED ORDERED. PATIENT VOID/
[2019-03-20 01:16] LABS: BILIRUBIN TOTAL 0.6 mg/dL (0.20-1.00); CALCIUM 7.8 mg/dL (8.5-10.1); CARBON DIOXIDE 15.8 mmol/L (21-32); TOTAL PROTEIN, SERUM 6.9 g/dL (6.4-8.2)
[2019-03-20 01:17] LABS: ALBUMIN 2.4 g/dL (3.4-5.0)
[2019-03-20 01:19] LABS: CREATININE SERUM 5.8 mg/dL (0.7-1.3); POTASSIUM SERUM 6.7 mmol/L (3.5-5.1)
--- NOTE | 2019-03-20 03:01 | NUR ---
PATIENT IS ADMITTED. REPORT WAS GIVEN TO REA. PATIENT TRANSPORTED TO ROOM 254
[2019-03-20 04:11] VITALS: BP 170/87
--- NOTE | 2019-03-20 04:29 | NUR ---
RECEIVED PT FROM ED VIA ERSATNAM ACCOMPANIED BY EMT AND RN. PT ABLE TO AMBULATE TO BED WITH ASSIST, UNSTEADY GAIT, SOB NOTED WITH EXERTION. NO ACUTE DISTRESS NOTED. EVEN AND SHALLOW RESPIRATIONS ON RA, SATTING 94%. TELE# 12 PLACED ON PT READING SR 71. IVL PATENT AND INTACT. NO C/O CHEST PAIN OR ANY PAIN AT THIS TIME. GENERALIZED EDEMA NOTED, +3 PITTING EDEMA TO BLE. VOIDS FREELY. SKIN INTACT. ORIENTED TO ROOM AND SURROUNDINGS. INSTRUCTED ON USE OF CALL LIGHT WHEN IN NEED OF ASSISTANCE. STRICT I&O IN PLACE. BED IN LOWEST POSITION. SIDE RAILS UPX2. CALL LIGHT WITHIN REACH. WILL CONTINUE TO MONITOR.
[2019-03-20 05:47] VITALS: BP 150/80
--- NOTE | 2019-03-20 06:17 | NUR ---
PT RESTED COMFORTABLY IN INTERVALS THROUGHOUT THE SHIFT. ALL NEEDS TENDED TO AND MET. ALL SCHEDULED MEDICATIONS GIVEN. EVEN AND UNLABORED RESPIRATIONS ON RA. ON TELE# 12 [address] SR. IVL PATENT AND INTACT. STRICT I&O IN PLACE. BLOOD SUGAR CHECKED, 95, NO COVERAGE NEEDED PER SLIDING SCALE. BED IN LOWEST POSITION. SIDE RAILS UPX2. CALL LIGHT WITHIN REACH. WILL ENDORSE TO ONCOMING SHIFT.
[2019-03-20 07:29] VITALS: BP 149/70
--- NOTE | 2019-03-20 07:30 | NUR ---
SEEN IN BED AAOX4. NO SOB NOTED AT THIS TIME, BREATHING E/U ON ROOM AIR. DENIES PAIN. POOR VISION. GEN BODY WEAKNESS/ EDEMA TO BLE, WEAK PEDAL PULSES PALPABLE. ON CCHO DIET. S/L TO LFA INTACT AND PATENT. CALL LIGHT PLACED WITHIN EASY REACH. SIDERAILS UP X2.
[2019-03-20 09:37] LABS: CALCIUM 7.6 mg/dL (8.5-10.1); CARBON DIOXIDE 14.5 mmol/L (21-32)
[2019-03-20 10:31] LABS: CREATININE SERUM 5.8 mg/dL (0.7-1.3); POTASSIUM SERUM 6.7 mmol/L (3.5-5.1)
--- NOTE | 2019-03-20 11:20 | NUR ---
SEEN BY DOCTOR GRACE
[2019-03-20 11:48] VITALS: BP 131/71
--- NOTE | 2019-03-20 13:48 | NUR ---
SEEN BY DOCTOR CHANTELLE. PLAN OF CARE DISCUSSED AT BEDSIDE. PATIENT STATED HE HAD 2 BOWEL MOVEMENT AFTER LOKELMA PO GIVEN.
[2019-03-20 15:55] VITALS: BP 120/68
--- NOTE | 2019-03-20 18:39 | NUR ---
NO ANY DISTRESS THROUGHOUT SHIFT. VSS. DENIES PAIN. STATED VOIDS FREELY. ABLE TO AMBULATE TO BATHROOM WITH SLOW GAIT. HAD 2 BM AFTER LOKELMA GIVEN.
--- NOTE | 2019-03-20 19:15 | NUR ---
CARE ASSUMED FROM OUTGOING RN. PT RESTING COMFORTABLY IN BED. FAMILY AT BEDSIDE. NO ACUTE DISTRESS NOTED. EVEN AND UNLABORED RESPIRATIONS ON RA. ON TELE# 12 READING SR 63 WITH OCC PVC'S. IVL INTACT. NO C/O PAIN AT THIS TIME. BED IN LOWEST POSITION. SIDE RAILS UPX2. CALL LIGHT WITHIN REACH. WILL CONTINUE TO MONITOR.
[2019-03-20 20:45] VITALS: BP 129/76
--- NOTE | 2019-03-21 01:37 | NUR ---
DR. RODRIGUEZ VISITED PT AT BEDSIDE. LASIX ORDERED ONE TIME DOSE NOW AND BID STARTING AT 0900. PT VERIFIES UNDERSTANDING. LASIX IVP GIVEN, IV PATENT AND INTACT. ON TELE# 12 READING SR 61. WILL CONTINUE TO MONITOR.
[2019-03-21 01:39] LABS: CALCIUM 7.8 mg/dL (8.5-10.1); CARBON DIOXIDE 13.7 mmol/L (21-32)
[2019-03-21 01:57] LABS: CREATININE SERUM 5.9 mg/dL (0.7-1.3); POTASSIUM SERUM 6.7 mmol/L (3.5-5.1)
--- NOTE | 2019-03-21 02:31 | NUR ---
MADE AWARE OF CRITICAL LABS: K: 6.7, BUN: 79.0, CREAT: 5.9. DR. RODRIGUEZ MADE AWARE, ORDERED LOKELMA TID, X1 DOSE NOW. PHARMACIST VERIFIED X1 DOSE NOW, WILL AWAIT DAY PHARMACIST TO VERIFY SCHEDULED TID DOSE. PT TOLERATED PO LOKELMA. WILL CONTINUE TO MONITOR.
[2019-03-21 05:50] VITALS: BP 132/78
--- NOTE | 2019-03-21 06:08 | NUR ---
PT SLEPT IN INTERVALS THROUGHOUT THE SHIFT. ALL NEEDS TENDED TO AND MET. ALL SCHEDULED MEDICATIONS GIVEN. EVEN AND UNLABORED RESPIRATIONS ON 2LNC/RA. ONT TELE# 12 READING SR 60. IVL INTACT. STRICT I&O IN PLACE, 475ML OUTPUT NOTED. BLOOD SUGAR CHECKED, 137,90, NO COVERAGE PER SLIDING SCALE. NO C/O PAIN. BED IN LOWEST POSITION. SIDE RAILS UPX2. CALL LIGHT WITHIN REACH. WILL ENDORSE TO ONCOMING SHIFT.
[2019-03-21 06:30] LABS: CALCIUM 7.8 mg/dL (8.5-10.1); CARBON DIOXIDE 15.1 mmol/L (21-32)
[2019-03-21 06:53] LABS: CREATININE SERUM 6.2 mg/dL (0.7-1.3)
[2019-03-21 07:00] LABS: BASOPHIL % 1.7 % (0-2); PLATELET COUNT 222 x10^3mcL (130-400)
--- NOTE | 2019-03-21 07:15 | NUR ---
RECEIVED PT FROM NOC RN. PT FOUND TALKING ON PHONE, LAYING IN BED. AA/OX4. NO S/S OF ACUTE DISTRESS. NO SOB ON ROOM AIR. NO C/O PAIN. IV WNL TO LFA, PATENT AND FLUSHES WELL. SALINE LOCKED. CALM/COOPERATIVE. FOUND ON ROOM AIR, DENIES SOB, RR EVEN/UNLABORED. CHEST EXPANSION SYMMETRICAL. NSR ON TELE 12, HR 63. INSTRUCTED TO USE CALL LIGHT TO CALL FOR ASSISTANCE PRN. PT VERBALIZED UNDERSTANDING. BED IN LOW POSITION. CALL LIGHT WITHIN REACH. WILL CONT. TO MONITOR.
[2019-03-21 07:28] VITALS: BP 134/71
[2019-03-21 07:34] LABS: RED CELL DISTRIBUTION WIDTH 16.5 % (11.5-14.5)
[2019-03-21 11:14] VITALS: BP 139/71
--- NOTE | 2019-03-21 12:40 | NUR ---
PT FOUND LAYING IN BED WITH HOB ELEVATED. NO S/S OF ACUTE DISTRESS. NO SOB ON ROOM AIR. OCCASSIONAL SOB WITH EXERTION. RR EVEN/UNLABORED. DENIES PAIN. NO CHEST PAIN. CALM/COOPERATIVE. FAMILY AT BEDSIDE. BED IN LOW POSITION. CALL LIGHT WITHIN REACH. WILL CONT. TO MONITOR.
[2019-03-21 17:48] VITALS: BP 119/69
--- NOTE | 2019-03-21 18:19 | NUR ---
PT LAYING IN BED. NO S/S OF ACUTE DISTRESS. NO SOB ON ROOM AIR. NO C/O PAIN. NO ACOSTA. NO DIZZINESS. NO NAUSEA. NO CHEST PAIN. IV WNL TO LFA, SALINE LOCKED. BED IN LOW POSITION. CALL LIGHT WITHIN REACH. WILL ENDORSE TO ONCOMING SHIFT.
--- NOTE | 2019-03-21 19:10 | NUR ---
CARE ASSUMED FROM OUTGOING RN. PT RESTING COMFORTABLY IN BED. FAMILY AT BEDSIDE. NO ACUTE DISTRESS NOTED. EVEN AND UNLABORED RESPIRATIONS ON RA. ON TELE# 12 READING SR 61. IVL INTACT. NO C/O PAIN AT THIS TIME. ALL QUESTIONS AND CONCERNS ANSWERED AT THIS TIME. EMPTIED 275ML YELLOW URINE FROM URINAL. BED IN LOWEST POSITION. SIDE RAILS UPX2. CALL LIGHT WITHIN REACH. WILL CONTINUE TO MONITIOR.
[2019-03-21 20:31] VITALS: BP 132/72
--- NOTE | 2019-03-22 00:39 | NUR ---
PT RESTING COMFORTABLY IN BED. NO ACUTE DISTRESS NOTED. EVEN AND UNLABORED RESPIRATIONS ON RA. ON TELE# 12 READING SB 59. IVL INTACT. NO C/O PAIN AT THIS TIME. DR. RODRIGUEZ DISCUSSED POC WITH PT. NPO AT THIS TIME FOR POSSIBLE TUNNEL CATH PLACEMENT FOR DIALYSIS, PT VERBALIZED UNDERSTANDING. BED IN LOWEST POSITION. SIDE RAILS UPX2. CALL LIGHT WITHIN REACH. WILL CONTINUE TO MONITOR.
[2019-03-22 05:45] VITALS: BP 140/79
--- NOTE | 2019-03-22 06:26 | NUR ---
PT RESTED COMFORTABLY IN INTERVALS THROUGHOUT THE SHIFT. ALL NEEDS TENDED TO AND MET. ALL SCHEDULED MEDICATIONS GIVEN. EVEN AND UNLABORED RESPIRATIONS ON RA, 2LNC PRN. ON TELE# 12 READING SB 58. IVL INTACT. STRICT I&O IN PLACE, 400ML OUTPUT NOTED. BLOOD SUGARS CHECKED, 125,99, NO COVERAGE NEEDED PER SLIDING SCALE. NPO SINCE MIDNIGHT FOR POSSIBLE TUNNEL CATHETER PLACEMENT FOR DIALYSIS, PT VERBALIZED UNDERSTANDING. BED IN LOWEST POSITION. SIDE RAILS UPX2. CALL LIGHT WITHIN REACH. WILL ENDORSE TO ONCOMING SHIFT.
[2019-03-22 07:10] LABS: BASOPHIL % 1.7 % (0-2); PLATELET COUNT 215 x10^3mcL (130-400)
[2019-03-22 07:28] LABS: CALCIUM 7.6 mg/dL (8.5-10.1); CARBON DIOXIDE 14.8 mmol/L (21-32)
[2019-03-22 07:37] LABS: CREATININE SERUM 6.6 mg/dL (0.7-1.3)
[2019-03-22 07:56] LABS: RED CELL DISTRIBUTION WIDTH 16.2 % (11.5-14.5)
--- NOTE | 2019-03-22 08:00 | NUR ---
RECEIVED PT IN BED A/A/OX4 DENIES ACOSTA. RESP EVEN AND UNLABORED WITH DIMINISHED BS TO BILAT BASES. ON O2 AT 2L/MIN VIA NC. WEANING OF. NSR ON TELE. DENIES ANY CP/PRESSURE AT THIS TIME. NOTED WITH +2 EDEMA [address] BLE ALL THE WAY UPT[employer] THIGHS. IV SL TO LFA. ABD SOFT, NONTEDER WITH ACTIVE BS X4. DENIES ANY N/V AT THIS TIME. VOIDING FREELY, WITH PLAN TO START HD TODAY AFTER TUNNELLED CATH PLACEMENT, PER DR. RODRIGUEZ. CALL LIGHT IN REACH NEEDS ATTENDED TO.
--- NOTE | 2019-03-22 09:42 | NUR ---
SPOKE WITH DR. LOCKHART UPDATED ON POC PER NEPHRO PT TO HAVE TUNNEL CATH TODAY FOLLOWED BY HD. MADE AWARE NO SX CONSULT ON FILE. AWARE OF K 6.0 AND B/C 85/6.6. INQUIRED WITH MD IF PT COULD SHOWER. OBTAINED OK TO SHOWER. CALL LIGHT IN REACH NEEDS ATTENDED TO.
[2019-03-22 09:45] VITALS: BP 151/76
--- NOTE | 2019-03-22 13:11 | NUR ---
DR. RODRIGUEZ SPOKE WITH PT REGRADING OPTIONS SINCE PT K+ LEVEL IS ELEVATED AND PER ANESTHESIA PT COULD NOT HAVE TUNNELED CATH PLACEMENT AT THIS TIME. PT AGREED TO HAVE MIKAELA CATH PLACEMENT. DR. LINN TO PERFORM PROCEDURE IN PACU. PT VERBALIZED UNDERSTANDING OF PROCEDURE DISCUSSED BY MD AND AGREE TO SIGN CONSENT. OR NURSE MADE AWARE EMRE WIPES HAVE NOT BEEN DONE AT THIS TIME. TO BE DONE IN PACU. PT TAKEN DOWN VIA BED AT THIS TIME FOR PROCEDURE. PT LEFT FLOOR FREE OF ANY APPARENT DISTRESS.
--- NOTE | 2019-03-22 13:50 | NUR ---
NOTED ORDER FOR HD FOR PT TODAY AND TOMORROW. HD NURSE AT [facility] HAD ALREADY BEEN NOTIFIED OF CATHETER PLACEMENT AND WAS AWARE OF PLANNED HD TREATMENT FOR TODAY. ORDERS AND LAB PRINTED AND HANDED OVER TO HD NURSE. PT REMAINS IN PACU FOR CATHETER PLACEMENT.
--- NOTE | 2019-03-22 14:21 | NUR ---
FOUND PT BACK IN HIS ROOM S/P RT MIKAELA CATH PLACEMENT IN RIJ AREA. PT RETURNED AT 1410 PER REPORT. DENIES ANY DISCOMFORT AT THIS TIME. CALL LIGHT IN REACH NEEDS ATTENDED TO.
--- NOTE | 2019-03-22 15:40 | NUR ---
DR. LINN PAGED TO OBTAIN OK TO USE MIKAELA CATH. AWAITING CALL BACK.
[2019-03-22 17:06] VITALS: BP 141/72
--- NOTE | 2019-03-22 18:40 | NUR ---
MADE AWARE HD CONCLUDED 1L OUTPUT PT TOLERATED PROCEDURE WELL.
--- NOTE | 2019-03-22 18:50 | NUR ---
PT REQUESTING MORE FOOD SINCE HE HAS BEEN NPO ALL DAY AND ONLY HAD SMALL PORTION FOR DINNER AND WILL BE NPO UNTIL TOMORROW AFTERNOON ONCE MORE FOR POSSIBLE PROCEDURE. DR. LOCKHART CALLED OBTAINED OK FOR OUTSIDE FOR FOR TONIGHT ONLY. PT AND FAMILY MADE AWARE. CALL LIGHT IN REACH NEEDS ATTENDED TO.
--- NOTE | 2019-03-22 19:20 | NUR ---
REPORT RECEIVED FROM DAY SHIFT RN. PATIENT WAS SEEN RESTING COMFORTABLY IN BED WITH FAMILY AT BEDSIDE. NO DISTRESS NOTED. BREATHING EVEN AND UNLABORED ON ROOM AIR. NO SOB OR RESP DISTRESS NOTED. DENIES CHEST PAIN/PRESSURE. NO C/O PAIN. ESTELA AL CATHETER, CDI. IV TO THE LFA, PATENT AND INTACT. NO REDNESS OR SWELLING NOTED. SALINE LOCK. STRICT I/O 1200ML/DAY. PITTING EDEMA TO BLE 3+. NPO AFTER MIDNIGHT FOR PROCEDURE. PATIENT IS AWARE. COMFORT AND SAFETY MEASURES IN PLACE. BED IS LOCKED AND IN THE LOWEST POSITION. SIDE RAILS UP X2. CALL LIGHT IS WITHIN REACH. WILL CONTINUE TO MONITOR.
[2019-03-22 21:56] VITALS: BP 134/69
--- NOTE | 2019-03-23 01:17 | NUR ---
RESTING IN BED COMFORTABLY. NO DISTRESS NOTED. BREATHING EVEN AND UNLABORED ON ROOM AIR. NO SOB NOTED. DENIES PAIN. EMPITIED 390ML OF YELLOW CLEAR URINE. PATIENT REPORTS HE HAD A LOOSE BM. NPO AT THIS TIME. SAFETY MEASURES IN PLACE. DAUGHTER AT BEDSIDE. CALL LIGHT IS WITHIN REACH. WILL CONTINUE TO MONITOR.
[2019-03-23 05:23] VITALS: BP 130/68
--- NOTE | 2019-03-23 06:02 | NUR ---
RESTED IN SHORT INTERVALS THROUGHOUT THE NIGHT WITH DAUGHTER AT BEDSIDE. NO DISTRESS NOTED. BREATHING EVEN AND UNLABORED ON ROOM AIR. NO SOB NOTED. DENIES CP. NO C/O PAIN THROUGHOUT THE NIGHT. NPO SINCE MIDNIGHT FOR PROCEDURE THIS AFTERNOON. IV TO THE LFA, SALINE LOCK. PATENT AND INTACT. ESTELA BAEZ, CDI. SAFETY MEASURES IN PLACE. CALL LIGHT IS WITHIN REACH. WILL ENDORSE CARE TO DAY SHIFT RN
[2019-03-23 07:05] LABS: CALCIUM 7.3 mg/dL (8.5-10.1); CARBON DIOXIDE 22.1 mmol/L (21-32); POTASSIUM SERUM 5.3 mmol/L (3.5-5.1)
[2019-03-23 07:08] LABS: CREATININE SERUM 5.6 mg/dL (0.7-1.3)
--- NOTE | 2019-03-23 07:50 | NUR ---
RECEIVED PT IN BED A/A/OX4 DENIES ACOSTA, RESP EVEN AND UNLABORED WITH DIMINISHED BS BILAT. ON RA. NSR WITH 1ST DEGREE ON TELE. NOTED WITH +3 EDEMA TO BLE UP TO MID THIGH. IV SL TO LFA. ABD SOFT, NONTENDER WITH ACTIVE BS X4. DENIES ANY N/V AT THIS TIME. VOIDING FREELY. NEW ONSET ESRD WITH HD SCHEDULED FOR TODAY. WITH RIJ MIKAELA CATH IN PLACE. AMBULATORY WITH SUPERVISION PT HAS HX OF AMPUTATION TO ALL RT FOOT TOES. CALL LIGHT IN REACH NEEDS ATTENDED TO.
[2019-03-23 08:03] VITALS: BP 143/76
--- NOTE | 2019-03-23 12:52 | NUR ---
PPD TO LT UPPER FOREARM DONE ORDERED AT THIS TIME. TO BE READ AT 1200 ON 03/25/19.
--- NOTE | 2019-03-23 12:57 | NUR ---
SPOKE WITH OR MADE AWARE OF POSSIBLE POSTPONEMENT VS CANCELLATION OF PROCEDURE SCHEDULED THIS AFTERNOON. FOR TUNNELED CATH PLACEMENT. PER OR THEY WILL CALL BACK WITH FINAL DECISION. AWAITING CALL BACK.
--- NOTE | 2019-03-23 13:00 | NUR ---
MADE AWARE PROCEDURE WILL OCCUR HD NURSE AT [facility] MADE AWARE TO RETURN FOR TX THIS AFTERNOON.
--- NOTE | 2019-03-23 15:20 | NUR ---
OR CALLED SPOKE WITH ALEXANDER LOTT MADE AWARE THAT PROCEDURE HAD BEEN CANCELLED. TO BE RESCHEDULED BY MD AT A LATER TIME. PT CLEAR TO EAT AND HAVE HD TX. CHRIS CALLED AND NOTIFIED. OBTAINED ORDER TO RESUME DIET. PT NOTIFIED.
--- NOTE | 2019-03-23 16:00 | NUR ---
DR. LINN, A IN TO EVAL PT. MD DISCUSSED PLAN FOR TUNNEL CATH MOVED TO FRIDAY AT 1200. MD DISCUSSED RISK/BENEFITS FOR CONSENT. ANSWER ALL OF PT'S QUESTION AND CONCERNS. PT AGREED WITH PROCEDURE AND PLAN.
[2019-03-23 17:05] VITALS: BP 153/75
--- NOTE | 2019-03-23 18:24 | NUR ---
PT WITH ONGOING HD AT THIS TIME. DENIES ANY DISCOMFORT AT THIS TIME. TOLERATING TX WELL. CALL LIGHT IN REACH NEEDS ATTENDED TO.
--- NOTE | 2019-03-23 19:45 | NUR ---
RECEIVED REPORT FROM DAY SHIFT RN. PT SITTING UP IN BED. AA&O X4. NO SOB ON ROOM AIR. NO C/O PAIN. NO DISTRESS NOTED. IV TO LFA, SALINE LOCKED. ESTELA BAEZ, DRESSING C/D/I. +3 EDEMA TO BLE. SAFETY MEASURES IN PLACE. BED IN LOWEST POSITION. SIDE RAILS UP X2. INSTRUCTED PT TO CALL IF ASSISTANCE IS NEEDED. CALL LIGHT WITHIN REACH. DAUGHTER AT BEDSIDE.
[2019-03-23 20:50] VITALS: BP 154/77
[2019-03-24 05:46] VITALS: BP 142/74
--- NOTE | 2019-03-24 07:30 | NUR ---
PT RESTED IN INTERVALS DURING SHIFT. NO SOB ON ROOM AIR. NO DISTRESS NOTED. SAFETY MEASURES MAINTAINED. ALL NEEDS ATTENDED TO. CALL LIGHT WITHIN REACH. DAUGHTER AT BEDSIDE. ENDORSED CONTINUITY OF CARE TO DAY SHIFT RN.
--- NOTE | 2019-03-24 07:30 | NUR ---
PT ENDORSE TO ME THIS MORNING, SITTING UP IN BED RESTING. AA/O X4, BREATHING EVEN AND UNLABORED ON RA NO ACUTE RESP DISTRESS OR SOB NOTED. TELE 12 NSR/ DENIES ANY CP OR PRESSURE. VOIDS FREELY/ CLEAR YELLOW URINE NOTED, HD PATIENT. RIJ QUINTION INTACT AND PATENT/ LAST HD 03/23 1.6L OUT. STRICT 1 & O AT 1200 ML /DAY. GEN WEAKNESS DUE TO R FOOT = ALL TOES AMPUTATED PER PT USES WAKER AT HOME FOR BASELINE. IV TO THE LFA INTACT AND PATENT/ HEPLOCKED. WILL CONTINUE TO MONITOR.
[2019-03-24 09:00] VITALS: BP 151/77
--- NOTE | 2019-03-24 11:00 | NUR ---
HD NURSE ARRIVED TO START HD.
[2019-03-24 12:07] VITALS: BP 144/69
--- NOTE | 2019-03-24 16:00 | NUR ---
HD COMPLETE TOTAL OUT 2L/ TOLERATED WELL.
[2019-03-24 16:18] VITALS: BP 144/70
--- NOTE | 2019-03-24 18:45 | NUR ---
NO ACUTE CHANGES AT THIS TIME, NO ACUTE RESP DISTRESS OR SOB NOTED. PT WILL REMAIN NPO AT MIDNIGHT FOR 1200 TUNNELED PLACEMENT 03/25. PT REFUSE TO SIGN CONSENT TODAY, STATED WILL SIGN TOMORROW ONCE HE HAS TALK TO HIS DAUGHTER. CK LIST STARTED. IV TO THE LFA INTACT AND PATENT/ HEPLOCKED. WILL ENDORSE TO INCOMING RN.
--- NOTE | 2019-03-24 19:44 | NUR ---
AWAKE AND ALERT, ORIENTED TO NAME, PLACE, TIME AND SITUATION. SPEECH CLEAR AND APPROPRIATE. HOB ELEVATED 40 DEG. UPPER SIDE RAILS IN RAISED POSITION, BED IN LOWEST POSITIION. SALINE LOCKED TO LEFT FOREARM. MIKAELA CATH TO RIGHT IJ. SINUS RHYTHM ON TELE. +2 EDEMA TO BLE. ELEVATED ON PILLOWS. CALL LIGHT WITHIN EASY REACH.
[2019-03-24 21:27] VITALS: BP 133/71
--- NOTE | 2019-03-24 22:27 | NUR ---
DAUGHTER TO STAY THE NIGHT, OK WITH LUPE AGUERO.
--- NOTE | 2019-03-25 00:31 | NUR ---
EYES CLOSED, BREATHING EVEN AND UNLABORED ON ROOM AIR. CALL LIGHT WITHIN EASY REACH
--- NOTE | 2019-03-25 02:46 | NUR ---
AMBULATED TO RESTROOM. VOIDED.
[2019-03-25 04:41] VITALS: BP 135/64
[2019-03-25 06:32] LABS: BASOPHIL % 1.2 % (0-2); PLATELET COUNT 178 x10^3mcL (130-400)
[2019-03-25 06:41] LABS: CALCIUM 7.2 mg/dL (8.5-10.1); CARBON DIOXIDE 30.4 mmol/L (21-32); POTASSIUM SERUM 4.6 mmol/L (3.5-5.1)
[2019-03-25 07:10] LABS: RED CELL DISTRIBUTION WIDTH 16.2 % (11.5-14.5)
--- NOTE | 2019-03-25 07:19 | NUR ---
AWAKE AND ALERT, IN NO ACUTE DISTRESS. ENDORSED TO NURSE YEHUDA
--- NOTE | 2019-03-25 07:30 | NUR ---
RECEIVED PATIENT SITTING UP IN BED WITH DAUGHTER AT BESIDE. ALERT ORIENTED ABLE TO VERBALIZE NEEDS WELL. HL LEFT F/A PATENT FLUSHED WELL. MIKAELA CATH RT SIDE OF NECK NOTED. TELE 12 NSR. DENIES ANY PAIN OR DISCOMOFRT AT THIS TIME. PATIENT SIGNED CONSENT FOR TUNNEL CATH PLACEMENT AT THIS TIME. AMBULATES WITH WALKER TO THE BATHROOM. TOES RT FOOT AMPUTATED, WITH WELL HEALED SCAR NOTED. +2 EDEMA NOTED BLE AND BILAT SIDES OF ABD. PATIENT HAS NUMBNESS AND TIGHTNESS BLE.
[2019-03-25 08:37] VITALS: BP 143/74
--- NOTE | 2019-03-25 10:00 | NUR ---
PATIENT'S PLAN OF CARE WAS DISCUSSED AND REVIEWED WITH RN PICU:YEHUDA PALACIOS. I HAVE REVIEWED THE DATA COLLECTION BY RN PICU (NAME):YEHUDA PALACIOS. ENTERED ON (DATE/TIME):03/25/2019 I CONCUR WITH THE DATA AND ANY EXCEPTIONS OR COMMENTS ARE LISTED BELOW:
[2019-03-25 12:06] VITALS: BP 134/69
--- NOTE | 2019-03-25 13:16 | NUR ---
PATIENT IS IN BED WITH FAMILY MEMBERS AT BEDSIDE. PATIENT'S SURGERY HAS BEEN RESCHEDULED UNTIL TOMORROW. PATIENT IS VERY UPSET THAT NO ONE CAME INTO LET HIM KNOW THAT IT WAS RESCHEDULED. NO ACUTE DISTRESS NOTED. DR LOCKHART NOTIFIED OF THE CHANGE IN SCHEDULE AND NEW ORDER RECIEVED FOR DIET AND THEN PT TO BE NPO AFTER MIDNOC.
[2019-03-25 16:22] VITALS: BP 124/65
--- NOTE | 2019-03-25 17:51 | NUR ---
PATIENT IS SITTING UP IN BED WITH DAUGHTER AT BEDSIDE. HD IN PROGRESS. CONDITIION APPEARS STABLE. DENIES ANY PAIN OR DISCOMFORT. REMINDED OF FLUID RESTRICTION.
--- NOTE | 2019-03-25 19:15 | NUR ---
AWAKE AND ALERT, ORIENTED TO NAME, PLACE, TIME AND SITUATION. SPEECH CLEAR AND APPROPRIATE. BREATHING EVEN AND UNLABORED ON ROOM AIR. HEMODIALYSIS ONGOING AT THIS TIME. MIKAELA CATH TO RIGHT IJ. PER DIALYSIS NURSE, GOAL IS TO REMOVE 2L.
--- NOTE | 2019-03-25 19:50 | NUR ---
DIALYSIS NURSE REPORTED NET FLUID OUT OF 2 LITER. PT AWAKE AND ALERT, IN NO ACUTE DISTRESS.
[2019-03-25 20:23] VITALS: BP 140/70
--- NOTE | 2019-03-25 20:44 | NUR ---
AWARE FOR PLACEMENT OF TUNNELED CATHETER TOMORROW AT 9 AM. AWARE TO BE NPO AFTER MIDNIGHT.
--- NOTE | 2019-03-25 22:56 | NUR ---
AMBULATING IN HALLWAY USING WALKER, GAIT STEADY, ACCOMPANIED BY HIS DAUGHTER. CHANGED LINENS.
--- NOTE | 2019-03-25 23:11 | NUR ---
BACK IN BED. BREATHING EVEN AND UNLABORED. REMINDED TO BE NPO AFTER MIDNIGHT
--- NOTE | 2019-03-26 03:28 | NUR ---
eyes closed, in no acute distress. kept npo since midnight. endorsed to nurse rey
--- NOTE | 2019-03-26 03:29 | NUR ---
CARE ASSUMED FROM OREN LIVINGSTON. PT RESTING COMFORTABLY IN BED WITH EYES CLOSED. NO ACUTE DISTRESS NOTED. EVEN AND UNLABORED RESPIRATIONS ON RA. ON TELE# [address] IVL INTACT. RIJ MIKAELA CATH IN PLACE, DRESSING CDI. PT NPO FOR TUNNEL CATH PLACEMENT AT 0900. CHG WIPES TO BE GIVEN BEFORE PROCEDURE. BED IN LOWEST POSITION. SIDE RAILS UPX2. CALL LIGHT WITHIN REACH. WILL CONTINUE TO MONITOR.
[2019-03-26 05:41] VITALS: BP 139/68
--- NOTE | 2019-03-26 06:20 | NUR ---
PT RESTED COMFORTABLY THROUGHOUT THE SHIFT. DAUGHTER AT BEDSIDE. EVEN AND UNLABORED RESPIRATIONS ON RA-2LNC. ON TELE# 12 READING SR/SB. MIKAELA CATH TO RIJ IN PLACE, DRESSING CDI. NPO SINCE MIDNIGHT. BLOOD SUGAR CHECKED, 85, NO COVERAGE NEEDED. CHG WIPES AND GOWN PROVIDED TO PT, INSTRUCTIONS GIVEN TO PREP FOR TUNNEL CATH PLACEMENT, PT VERBALIZED UNDERSTANDING. WALKER AT BEDSIDE. BED IN LOWEST POSITION. SIDE RAILS UPX2. CALL LIGHT WITHIN REACH. WILL ENDORSE TO ONCOMING SHIFT.
--- NOTE | 2019-03-26 06:46 | NUR ---
REPORT GIVEN TO OR, CONSENT SIGNED, CHECKLIST STARTED. WILL ENDORSE TO ONCOMING SHIFT.
[2019-03-26 07:17] LABS: BASOPHIL % 0.7 % (0-2); PLATELET COUNT 171 x10^3mcL (130-400)
--- NOTE | 2019-03-26 07:20 | NUR ---
RECEIVED PT FROM ELECTROPLATING WORKER. PT AWAKE, ALERT. A/OX4. PT ON 2LNC WITH NO RESP DISTRESS NOTED AT THIS TIME. PT ON TELE 12, DENIES CHEST PAIN. IV ACCESS, LEFT FA, CDI SALINE LOCKED. PERIPHERAL PULSES PALPABLE. EDEMA NOTED TO RLE. ACTIVE BS NOTED. PT HAS RI MIKAELA CATH FOR HEMODIALYSIS. PT TO HAVE TUNNELED CATH PLACEMENT TODAY. PT NOTED TO HAVE GENERALIZED WEAKNESS. USES WALKER. SAFETY MEASURES IN PLACE, BED LOW AND LOCKED. CALL LIGHT WITHIN REACH.
[2019-03-26 07:54] LABS: CARBON DIOXIDE 27.2 mmol/L (21-32)
[2019-03-26 07:55] LABS: CALCIUM 7.3 mg/dL (8.5-10.1); CREATININE SERUM 3.5 mg/dL (0.7-1.3)
--- NOTE | 2019-03-26 08:50 | NUR ---
PT OFF THE FLOOR FOR PROCEDURE AT THIS TIME.
[2019-03-26 08:54] LABS: RED CELL DISTRIBUTION WIDTH 17.4 % (11.5-14.5)
[2019-03-26 08:58] VITALS: BP 151/76
[2019-03-26 11:08] VITALS: BP 137/74
--- NOTE | 2019-03-26 11:08 | NUR ---
PT BACK ON FLOOR AFTER PROCEDURE. PT HAS WEIGHT TO RIGHT UPPER CLAVICLE TO STAY UNTIL 1430. PT DROWSY AT THIS TIME. VSS BP 137/74(102), HR 62, O2 SAT 95% ON 2LNC. PT REPORTS NO DISCOMFORT AT THIS TIME. FAMILY AT BEDSIDE. SAFETY MAINTAINED.
--- NOTE | 2019-03-26 11:36 | NUR ---
PT ALERT, AWAKE AT THIS TIME. DR SOSA AT BEDSIDE. PER DR AYALA TO GIVE AM MEDS AT THIS TIME. SCHEDULED MEDS ADMINISTERED ORDERED. PT TOLERATED WELL. FAMILY AT BEDSIDE, NO ACUTE DISTRESS NOTED.
[2019-03-26 12:26] VITALS: BP 149/78
--- NOTE | 2019-03-26 12:58 | NUR ---
PT COMPLAINING OF PAIN TO RIGHT UPPER CHEST S/P PROCEDURE. UNSURE IF ITS THE WEIGHT. TYLENOL ADMINISTERED FOR DISCOMFORT PRN ORDERED. WILL MONITOR.
--- NOTE | 2019-03-26 14:21 | NUR ---
PT REPORTS SOME RELIEF AFTER ADMINISTRATION OF TYLENOL. WILL CONTINUE TO MONITOR.
--- NOTE | 2019-03-26 14:38 | NUR ---
Initial Nutrition Assessment: 254T/A LEAH ALARCON IA MR Dx: SOB, anasarca, renal failure PMHx: CAD, HTN, DM, CKD stage 4, chronic CHF, pulmonary HTN PSHx: amputation R toes Labs: BUN 29H, CREAT 3.5H, ALB 2.4L, WBC 4.4L, HGB 7.7L Meds: D 50%, Humulin, Lasix, phenegran, vitamin D Diet: NPO (for sx), renal PO intake since admission: (03/25) breakfast 0%, (03/24) dinner 70%, breakfast 100% Ht: 187.96 cm (74") Wt: 101.7 kg (223#) BMI: 28.8 kg/m2 Bed scale: unable to access as pt was not in room IBW: 190# (86 kg) %IBW: 117 UBW: unbale to access Age: 53/M Food Allergies: NKFA Skin: intact Sal: 18 Edema: +2 BLE GI: Last BM: 03/25 Per H&P, Pt is a 53 YO M with PMHx of CAD, HTN, DM, CKD stage 4, chronic CHF, pulmonary HTN, came in with c/o increased lower extremity swelling, worsening edema over [address] Note (03/26): Patient had gone for tunnel cath placement. Per RN socorro, pt does not ahev any N/V/D/C at this time. Per progress note (03/25), Patient was supposed to have his tunneled catheter placement today however he won't occur until tomorrow due to surgeon availability. He is currently awaiting his dialysis session for today. Potassium has now normalized. Patient has been set up for dialysis at [facility] in [facility] at 1:30 PM on Friday. He may be discharged tomorrow after his tunneled catheter placement. Problem with: N/V/D/C: none per RN Problems with: Chewing: Swallowing: none Current appetite: unbale to access Recent wt change: unbale to access %wt change: n/a Vitamin/Supplement use: unbale to access Special diet at home: unbale to access Physical activity: unbale to access Nutrition education given: not possible at this time Food-drug interactions: none Education given: n/a Estimated Nutritional Needs Based on ideal body weight (86 kg) Energy: 4823-8730 kcal/day (30-35 kcal/kg for HD needs) Protein: 103-120 g/day (1.2-1.4 g/kg for HD needs) Fluid: 1L + HD output Nutrition Diagnosis: 1. Increased nutrient needs related to increased metabolic demands as evidenced by patient on HD. Intervention 1. Recommend continuing renal diet. Monitor/Evaluate Goal: PO intake at least 75% of estimated needs Monitor: PO intake, Labs, GI function F/U in 3-5 days as moderate risk 03/29-
--- NOTE | 2019-03-26 14:39 | NUR ---
1. Recommend continuing renal diet.
[2019-03-26 15:57] VITALS: BP 109/65
[2019-03-26 15:59] VITALS: BP 109/65
--- NOTE | 2019-03-26 16:32 | NUR ---
DISCHARGE INSTRUCTIONS/EDUCATION PROVIDED TO PATIENT. PT TO FOLLOW UP WITH PCP WITH APPT PROVIDED. PT TO FOLLOW UP WITH DAVITA WITH INSTRUCTIONS PROVIDED ON FRIDAY AT 1300 FOR PAPERWORK AND CHAIR TIME AT 1400. PT VERBALIZED UNDERSTANDING. IV ACCESS REMOVED WITH CATHETER INTACT. NO SWELLING OR BLEEDING NOTED. PT TO BE TAKEN BY WHEELCHAIR TO PRIVATE AUT[employer] FOR DISCHARGE. SAFETY MAITAINED.
== END 2019-03-26 16:45 | disposition home or self-care (01) | DRG 133 ==
LOC: ED 23:14 → DU 03-20 02:05 → MU 03-26 10:27
PROVIDERS: Emergency Medicine; Internal Medicine Nephrology; Surgery; ADMIT Internal Medicine
PROC: B543ZZA Ultrasonography of Right Jugular Veins, Guidance (ICD-10-PCS; 2019-03-22)
PROC: 05HM33Z Insertion of Infusion Device into Right Internal Jugular Vein, Percutaneous Approach (ICD-10-PCS; principal; 2019-03-22 13:30)
PROC: 05PY33Z Removal of Infusion Device from Upper Vein, Percutaneous Approach (ICD-10-PCS; 2019-03-26)
PROC: 05HM33Z Insertion of Infusion Device into Right Internal Jugular Vein, Percutaneous Approach (ICD-10-PCS; 2019-03-26)
PROC: B543ZZA Ultrasonography of Right Jugular Veins, Guidance (ICD-10-PCS; 2019-03-26)
DX: J96.00 Acute respiratory failure, unspecified whether with hypoxia or hypercapnia (principal); E11.21 Type 2 diabetes mellitus with diabetic nephropathy; N17.9 Acute kidney failure, unspecified; N18.4 Chronic kidney disease, stage 4 (severe); E87.5 Hyperkalemia; I12.9 Hypertensive chronic kidney disease with stage 1 through stage 4 chronic kidney disease, or unspecified chronic kidney disease; E11.22 Type 2 diabetes mellitus with diabetic chronic kidney disease; I34.0 Nonrheumatic mitral (valve) insufficiency; Z68.25 Body mass index [BMI] 25.0-25.9, adult; Z79.84 Long term (current) use of oral hypoglycemic drugs
CPT/HCPCS: 82962; 83880; 86580; A4301; C1769; G0378; J0610; J0690; J1644; J1940; J2001; J2250; J3010; J3490; J7030; Q0092

== ENCOUNTER 2019-03-27 00:24 | Emergency (ER) | payer MEDICAID ==
[~2019-03-27] VITALS: Ht 188 cm; Wt 100.2 kg
[2019-03-27 00:57] VITALS: BP 119/60; Ht 188 cm; Wt 100.2 kg
== END 2019-03-27 01:32 | disposition home or self-care (01) ==
LOC: ED 00:24
DX: T82.838A Hemorrhage due to vascular prosthetic devices, implants and grafts, initial encounter (principal); I10 Essential (primary) hypertension; E11.9 Type 2 diabetes mellitus without complications; E78.00 Pure hypercholesterolemia, unspecified; Z98.890 Other specified postprocedural states; Y92.89 Other specified places as the place of occurrence of the external cause